=== PATIENT | male | born 1970 | race Caucasian/White ===

== ENCOUNTER 2020-10-15 14:32 | Inpatient (IN) ==
[2020-10-15] MEDS ORDERED: ALBUT/IPRATROP 3MG/0.5MG NEB 3 ML VIAL NEB STA (17:11)
--- NOTE | 2020-10-15 17:11 | Emergency Department Note ---
Impression & Plan SOB (shortness of breath), Pneumonia, Leukocytosis, COVID-19 ED Provider Note NAME: HERB LEARY JR AGE: 50 SEX: M : 1970 ARRIVES VIA: Walk-In INFORMANT: [Patient] ED PROVIDER(S): [Yinka Person MD] CHIEF COMPLAINT: Short of breath HISTORY OF PRESENT ILLNESS: The patient is a 50-year-old male who presents to the ER with complaints of 3 weeks of shortness of breath. The patient states that he has also had a somewhat productive cough. No fever. He has lost 14 pounds in a month. He just has no appetite. The patient did see [facility] today. He was referred to the ED for the possibility of a lung mass. Apparently, the patient has a history of a mass on his right lung 17 years ago. He has really not had much follow-up. The patient is not a current smoker. He has a friend's albuterol inhaler which she has been using and this does seem to help his breathing. Exertion makes his breathing worse. There has been no vomiting, he has not had diarrhea. No abdominal pain. The patient was tested for Covid just a few days ago and was negative. Of note, he is not vaccinated. REVIEW OF SYSTEMS: See HPI for pertinent positives and negatives. A total of ten systems were reviewed and were otherwise negative. PMHx/PSHx: See Below SOCIAL HISTORY: See Below. PHYSICAL EXAM: GENERAL: Patient is in moderate respiratory distress. HEENT: No acute trauma, normocephalic atraumatic, mucous membranes moist, no nasal congestion, no scleral icterus. NECK: No stridor, no adenopathy, no meningismus, trachea is midline. LUNGS: There is moderate respiratory distress. There are some wheezes heard with expiration. His lungs are diminished bilaterally. Breath sounds are equal. Increased respiratory rate. HEART: Mildly tachycardic, regular rhythm, no murmurs. ABDOMEN: Soft, nontender, bowel sounds positive, no hernias, no peritonitis. EXTREMITIES: No cyanosis or edema, full range of motion of all the joints without pain or difficulty, no signs for acute trauma. NEUROLOGIC: Oriented x 3, no acute motor or sensory deficits, no focal weakness. SKIN: No rash, no jaundice, no diaphoresis. DIFFERENTIAL DIAGNOSIS: Reactive airway disease, pneumonia, pneumothorax, malignancy, COVID-19, COPD, CHF, infection, cardiac ischemia, pulmonary embolism, bronchitis, musculoskeletal, gastrointestinal, as well as other pathologies. EMERGENCY DEPARTMENT COURSE/PROCEDURES: ECG: Indication was shortness of breath. The ECG shows what I believed to be a sinus tachycardia. The rate is 115. There is baseline artifact. There is no ST elevation, no PVCs. The QTc is 481. Continuous Cardiac Monitoring: An order was placed for continuous cardiac monitoring. The monitor shows a rate of 112 with sinus tachycardia. Critical Care Note: I have personally spent 43 minutes of critical care time in the direct management of this patient. This includes bedside care, interpretation of diagnostic studies, and testing, discussion with consultants, patient, and family members, and other required patient management activities. This 43 minutes is in excess of all separately billable procedures. MEDICAL DECISION MAKING: There is a significant leukocytosis at 19,000, this could be consistent with infection. Patient was anemic with a lower hemoglobin. Platelet count was elevated at 611. No coagulopathy. Potassium and sodium were both low. Lactic acid level was not elevated making severe sepsis less likely. No concerning liver enzyme elevation. Patient appeared to be in a euthyroid state. Covid te st returned positive. TB testing is pending. Chest film shows a right upper lung cavitary lesion. Chest CT shows similar findings as noted on the chest x- ray consistent with most likely abscess/infection. TB was considered. Malignancy was considered. The patient received a DuoNeb. He was given IV Decadron. He received oral potassium. He was given IV saline. He received IV Zosyn as antibiotic coverage. The patient does feel improved since our treatment. When the x-ray findings returned, he was immediately put in airborne precautions. The ED charge nurse was made aware of our concern for the possibility of TB. The patient is aware of his findings. He is being hospitalized. I did speak with continuous pillowcase cutter. The on-call hospitalist was consulted. Past Med/Surg History Medical History Lung mass Social History Smoking Status: Never smoker Hx Alcohol Use: Yes Alcohol type: beer and hard liquor Hx Substance Use: No Preferred Language: Telugu Communication Ability: Effective Beliefs That Will Affect Care: None Current Living Situation: Alone Feels Safe at Home: Yes Assistive Devices: None Allergies Allergies Allergy/AdvReac Type Severity Reaction Status Date / Time No Known Allergies Allergy Unverified 10/15/20 17:07 Home Meds Home Medications Medication Instructions Recorded Confirmed albuterol sulfate 0 mg INHALATION ONCE 10/15/20 10/15/20 albuterol sulfate 90 mcg/actuation 2 puff INHALATION QID 10/15/20 10/15/20 aerosol inhaler (ProAir HFA) amoxicillin 875 mg-potassium 1 tab PO Q12H 10/15/20 10/15/20 clavulanate 125 mg tablet (Augmentin) azithromycin 250 mg tablet 250 mg PO DIRECTED 10/15/20 10/15/20 (Zithromax Z-Ludwig) elderberry fruit 200 mg capsule 200 mg PO ONCE 10/15/20 10/15/20 fluticasone 250 mcg-salmeterol 50 1 inh INHALATION BID 10/15/20 10/15/20 mcg/dose blistr powdr for inhalation (Advair Diskus) prednisone 10 mg tablet 10 mg PO DIRECTED 10/15/20 10/15/20 Results & Data (ED) Vital Signs Vital Signs - 24 hr 10/15/20 14:42 10/15/20 17:34 10/15/20 17:49 Temperature 37 C 37.1 C Temperature Source Temporal Artery Scan Oral Pulse Rate 118 H 112 H Pulse Rate [Right Finger] 111 H 110 H Respiratory Rate 18 20 14 Respiratory Effort / Characteristics Non-Labored Spontaneous Blood Pressure 122/80 Blood Pressure [Right Arm] 131/81 Blood Pressure Mean 94 Blood Pressure Mean [Right Arm] 97 Pulse Oximetry 97 95 95 Oxygen Delivery Method Room Air Room Air Room Air Sepsis Recent Fever Within 48 Hours No Sepsis New/Unexplained Change in Mental Status N/A Sepsis Action Taken by Nursing No Action Required 10/15/20 19:15 10/15/20 19:30 10/15/20 19:45 Temperature Temperature Source Pulse Rate 107 H 107 H 105 H Pulse Rate [Right Finger] Respiratory Rate 21 25 H 24 Respiratory Effort / Characteristics Blood Pressure 125/79 119/69 118/86 Blood Pressure [Right Arm] Blood Pressure Mean 94 85 96 Blood Pressure Mean [Right Arm] Pulse Oximetry 94 95 95 Oxygen Delivery Method Sepsis Recent Fever Within 48 Hours Sepsis New/Unexplained Change in Mental Status Sepsis Action Taken by Nursing 10/15/20 20:30 10/15/20 20:40 Temperature Temperature Source Pulse Rate 106 H 100 H Pulse Rate [Right Finger] Respiratory Rate 17 16 Respiratory Effort / Characteristics Blood Pressure 128/93 124/84 Blood Pressure [Right Arm] Blood Pressure Mean 104 97 Blood Pressure Mean [Right Arm] Pulse Oximetry 96 95 Oxygen Delivery Method Sepsis Recent Fever Within 48 Hours Sepsis New/Unexplained Change in Mental Status Sepsis Action Taken by Prison Medications Current Medication List: was personally reviewed by me Laboratory Data Attestation: I reviewed the patient's lab results. Result diagrams: 10/15/20 21:37 10/15/20 21:37 Lab Results 10/15/20 10/15/20 10/15/20 Range/Units 17:19 17:19 17:19 WBC 19.12 H (4.8-10.8) K/uL RBC 3.77 L (4.7-6.1) M/uL Hgb 12.2 L (14.0-18.0) g/dL Hct 35.0 L (42-52) % MCV 92.8 (80-100) fL MCH 32.4 (25-34) pg MCHC 34.9 (32-36) g/dL RDW Std Deviation 47.0 H (36.4-46.3) fL RDW Coeff of Bryce 13.8 (11.5-14.5) % Plt Count 611 H (130-400) K/uL MPV 8.9 (7.4-10.4) fL Immature Gran % (Auto) 0.8 % Neut % (Auto) 88.1 % Lymph % (Auto) 5.3 % [place] % (Auto) 4.9 % Eos % (Auto) 0.7 % Baso % (Auto) 0.2 % Neut # (Auto) 16.84 H (1.4-6.5) K/uL Lymph # (Auto) 1.02 L (1.2-3.4) K/uL [place] # (Auto) 0.94 H (0.11-0.59) K/uL Eos # (Auto) 0.13 (0-0.5) K/uL Baso # (Auto) 0.03 (0-0.2) K/uL Immature Gran # (Auto) 0.16 H (0.00-0.02) K/uL PT 11.9 (9.0-12.0) Seconds INR 1.2 H (0.9-1.1) APTT 28.5 (21.0-31.0) Seconds PTT Ratio 1.1 Sodium 128 L (136-145) mmol/L Potassium 3.3 L (3.5-5.1) mmol/L Chloride 95 L (98-107) mmol/L Carbon Dioxide 25 (21-32) mmol/L Anion Gap 8.0 (3-11) BUN 12 (7-18) mg/dl Creatinine 0.72 (0.6-1.4) mg/dl Est Cr Clr Drug Dosing 125.3 ml/min Est GFR ( Amer) 125.2 ml/min Est GFR (Non-Af Amer) 108.0 ml/min BUN/Creatinine Ratio 17.1 (10-20) Glucose 101 H (70-99) mg/dl Osmolality (280-300) mOsm/kg Lactate (0.4-2.0) mmol/L Calcium 9.2 (8.5-10.1) mg/dl Magnesium 2.2 (1.8-2.4) mg/dl Total Bilirubin 0.6 (0.2-1) mg/dl AST 43 H (15-37) U/L ALT 40 (12-78) U/L Alkaline Phosphatase 92 (45-117) U/L Troponin I < 0.015 (0-0.045) ng/ml Total Protein 8.9 H (6.4-8.2) gm/dl Albumin 2.0 L (3.4-5.0) gm/dl Globulin 6.9 H (2.5-4.0) gm/dl Albumin/Globulin Ratio 0.3 L (0.9-2) TSH 1.350 (0.300-4.500) uIu/ml COVID-19 Eval Order SARS-CoV-2 (PCR) (Negative) 10/15/20 10/15/20 10/15/20 Range/Units 17:19 17:40 17:40 WBC (4.8-10.8) K/uL RBC (4.7-6.1) M/uL Hgb (14.0-18.0) g/dL Hct (42-52) % MCV (80-100) fL MCH (25-34) pg MCHC (32-36) g/dL RDW Std Deviation (36.4-46.3) fL RDW Coeff of Bryce (11.5-14.5) % Plt Count (130-400) K/uL MPV (7.4-10.4) fL Immature Gran % (Auto) % Neut % (Auto) % Lymph % (Auto) % [place] % (Auto) % Eos % (Auto) % Baso % (Auto) % Neut # (Auto) (1.4-6.5) K/uL Lymph # (Auto) (1.2-3.4) K/uL [place] # (Auto) (0.11-0.59) K/uL Eos # (Auto) (0-0.5) K/uL Baso # (Auto) (0-0.2) K/uL Immature Gran # (Auto) (0.00-0.02) K/uL PT (9.0-12.0) Seconds INR (0.9-1.1) APTT (21.0-31.0) Seconds PTT Ratio Sodium (136-145) mmol/L Potassium (3.5-5.1) mmol/L Chloride (98-107) mmol/L Carbon Dioxide (21-32) mmol/L Anion Gap (3-11) BUN (7-18) mg/dl Creatinine (0.6-1.4) mg/dl Est Cr Clr Drug Dosing ml/min Est GFR ( Amer) ml/min Est GFR (Non-Af Amer) ml/min BUN/Creatinine Ratio (10-20) Glucose (70-99) mg/dl Osmolality 274 L (280-300) mOsm/kg Lactate (0.4-2.0) mmol/L Calcium (8.5-10.1) mg/dl Magnesium (1.8-2.4) mg/dl Total Bilirubin (0.2-1) mg/dl AST (15-37) U/L ALT (12-78) U/L Alkaline Phosphatase (45-117) U/L Troponin I (0-0.045) ng/ml Total Protein (6.4-8.2) gm/dl Albumin (3.4-5.0) gm/dl Globulin (2.5-4.0) gm/dl Albumin/Globulin Ratio (0.9-2) TSH (0.300-4.500) uIu/ml COVID-19 Eval Order Covid19 at [facility] SARS-CoV-2 (PCR) POSITIVE A* (Negative) 10/15/20 Range/Units 18:18 WBC (4.8-10.8) K/uL RBC (4.7-6.1) M/uL Hgb (14.0-18.0) g/dL Hct (42-52) % MCV (80-100) fL MCH (25-34) pg MCHC (32-36) g/dL RDW Std Deviation (36.4-46.3) fL RDW Coeff of Rbyce (11.5-14.5) % Plt Count (130-400) K/uL MPV (7.4-10.4) fL Immature Gran % (Auto) % Neut % (Auto) % Lymph % (Auto) % [place] % (Auto) % Eos % (Auto) % Baso % (Auto) % Neut # (Auto) (1.4-6.5) K/uL Lymph # (Auto) (1.2-3.4) K/uL [place] # (Auto) (0.11-0.59) K/uL Eos # (Auto) (0-0.5) K/uL Baso # (Auto) (0-0.2) K/uL Immature Gran # (Auto) (0.00-0.02) K/uL PT (9.0-12.0) Seconds INR (0.9-1.1) APTT (21.0-31.0) Seconds PTT Ratio Sodium (136-145) mmol/L Potassium (3.5-5.1) mmol/L Chloride (98-107) mmol/L Carbon Dioxide (21-32) mmol/L Anion Gap (3-11) BUN (7-18) mg/dl Creatinine (0.6-1.4) mg/dl Est Cr Clr Drug Dosing ml/min Est GFR ( Amer) ml/min Est GFR (Non-Af Amer) ml/min BUN/Creatinine Ratio (10-20) Glucose (70-99) mg/dl Osmolality (280-300) mOsm/kg Lactate 1.4 (0.4-2.0) mmol/L Calcium (8.5-10.1) mg/dl Magnesium (1.8-2.4) mg/dl Total Bilirubin (0.2-1) mg/dl AST (15-37) U/L ALT (12-78) U/L Alkaline Phosphatase (45-117) U/L Troponin I (0-0.045) ng/ml Total Protein (6.4-8.2) gm/dl Albumin (3.4-5.0) gm/dl Globulin (2.5-4.0) gm/dl Albumin/Globulin Ratio (0.9-2) TSH (0.300-4.500) uIu/ml COVID-19 Eval Order SARS-CoV-2 (PCR) (Negative) Administered Medications Folic Acid (Folic Acid 1 Mg Tab) 1 mg PO [facility] Stop: 11/14/20 22:58 Last Admin: 10/16/20 00:32 Dose: 1 mg Documented by: [id number] Thiamine HCl (Thiamine Hcl 100 Mg Tab) 100 mg PO [facility] Stop: 11/14/20 22:58 Last Admin: 10/16/20 00:32 Dose: 100 mg Documented by: [id number] Discontinued Medications Albuterol (Albut/Ipratrop 3mg/0.5mg Neb 3 Ml Vial) 3 ml NEB NOW STA Stop: 10/15/20 17:12 Last Admin: 10/15/20 17:49 Dose: 3 ml Documented by: [id number] Dexamethasone Sodium Phosphate (DexamethasonePf 10 Mg/Ml Vial) 6 mg IV NOW ONE Stop: 10/15/20 19:44 Last Admin: 10/15/20 20:39 Dose: 6 mg Documented by: [id number] Gabapentin (Gabapentin 800 Mg Tab) 1,200 mg PO NOW STA Stop: 10/15/20 20:59 Last Admin: 10/15/20 21:41 Dose: Not Given Documented by: [id number] Gabapentin (Gabapentin 600 Mg Tab) 1,200 mg PO NOW STA Stop: 10/15/20 21:02 Last Admin: 10/15/20 21:39 Dose: 1,200 mg Documented by: [id number] Piperacillin Sod/Tazobactam Sod (Zosyn) 4.5 gm in 120 mls @ 240 mls/hr IV NOW ONE Stop: 10/15/20 18:20 Last Infusion: 10/15/20 19:25 Dose: 0 mls/hr Documented by: [id number] Admin: 10/15/20 18:55 Dose: 240 mls/hr Documented by: [id number] Sodium Chloride (Nss 1000ml) 1,000 mls @ 999 mls/hr IV .Q1H1M ONE Stop: 10/15/20 20:03 Last Infusion: 10/15/20 21:41 Dose: 0 mls/hr Documented by: [id number] Admin: 10/15/20 20:40 Dose: 999 mls/hr Documented by: [id number] Thiamine HCl 100 mg/ Syringe 10 mls @ 2 mls/min IV NOW STA Stop: 10/15/20 21:11 Last Admin: 10/15/20 21:40 Dose: 2 mls/min Documented by: [id number] Pantoprazole Sodium 40 mg/ (Syringe) 10 mls @ 5 mls/min IV NOW STA Stop: 10/15/20 21:07 Last Admin: 10/15/20 21:40 Dose: 5 mls/min Documented by: [id number] Doxycycline Hyclate 100 mg/ (Dextrose) 110 mls @ 50 mls/hr IV NOW STA Stop: 10/16/20 00:03 Last Admin: 10/16/20 00:31 Dose: 50 mls/hr Documented by: [id number] Ioversol (Optiray 320 125ml) 120 ml IV ONCE ONE Stop: 10/15/20 20:07 Last Admin: 10/15/20 20:07 Dose: 120 ml Documented by: [id number] Potassium Chloride (Potassium Chloride Crtab 20 Meq Tabcr) 40 meq PO NOW STA Stop: 10/15/20 19:16 Last Admin: 10/15/20 20:39 Dose: 40 meq Documented by: [id number] Imaging Data Radiologist's Impression: Chest CTA 10/15/20 17:05 CT ANGIOGRAPHY OF THE CHEST, PULMONARY EMBOLUS PROTOCOL CLINICAL HISTORY: Cough. COMPARISON STUDY: Chest radiograph October 15, 2020. TECHNIQUE: Following IV administration of 120 mL of Optiray, helical axial images of the chest were obtained utilizing the pulmonary embolus protocol. Maximal intensity projections and sagittal and coronal reformats were viewed on an independent 3D workstation. IV contrast was administered without complication. Automated exposure control was utilized for the study. A dose lowering technique was utilized adhering to the principles of ALARA. CT DOSE: 327.76 mGy.cm FINDINGS: No pulmonary emboli are identified although the lower lobe pulmonary arteries are suboptimally opacified. There is a hiatal hernia. Size of the heart is normal. There is no thoracic aortic dissection. A prominent right paratracheal left node measures 1.3 x 0.9 cm. An enlarged right hilar node measures 1.8 x 1.5 cm. Note is made of a 10.4 x 6.4 x 8 cm thick-walled cavitary lesion within the right upper lobe. This contains an air-fluid level. There is extensive adjacent airspace opacity. In addition, there are numerous ill-defined small nodules throughout the lungs. The cavity abuts the chest wall. No associated bony destruction is present. There is no pneumothorax or pleural effusion. There is a 3.4 cm cystic focus with airspace opacity within the left lower lobe. No suspicious lesions are identified within visualized portions of the bony thorax. Visual portions of the upper abdomen are unremarkable. IMPRESSION: 1. No pulmonary emboli identified although lower lobe pulmonary arteries suboptimally opacified. 2. 10.4 x 6.4 x 8 cm thick-walled cavitary lesion within the right upper lobe which contains an air-fluid level. Adjacent airspace opacity. The CT appearance is nonspecific however an infectious process is favored and tuberculosis with possible endobronchial spread throughout the lungs is within the differential. In addition, a neoplastic process is also within the differential and therefore short-term imaging follow-up is recommended to ensure resolution. Findings discussed with Dr. Person at time of dictation. 3. Mildly enlarged right hilar lymph nodes and prominent mediastinal lymph nodes. These may be reactive. A neoplastic process could appear similar and therefore these should be assessed on subsequent CT to ensure resolution. 4. Small irregular airspace opacities throughout the lungs which favor an infectious process. 5. 3.4 cm cystic focus with airspace opacity within the left lower lobe. This should be assessed on follow-up CT as well. ACT 112: Positive. There are findings on this exam that require communication between the performing entity and the patient following Patient Test Result Information Act ([place] Act 112) guidelines. Electronically signed by: Casey Helms M.D. 10/15/2020 8:51 PM Chest X-Ray 10/15/20 17:06 XR chest 1V portable CLINICAL HISTORY: Shortness of breath. COMPARISON STUDY: No previous studies for comparison. FINDINGS: There is no pneumothorax or pleural effusion. Note is made of an 8.3 cm cavitary lesion within the right upper lobe. There is adjacent airspace opacity. Cardiac size is normal. There is no evidence for pulmonary edema. IMPRESSION: 8.3 cm cavitary lesion within the right upper lobe with adjacent airspace opacity. This could reflect a cavitary pneumonia or a cavitary neop lasm. This can be further assessed with chest CT which has been ordered. ACT 112: Negative or not required by law. Electronically signed by: Casey Helms M.D. 10/15/2020 5:45 PM Discharge Plan Visit Data Chief Complaint: Cough Stated Complaint: COUGH/DOCTOR REF FOR CT ED Provider: Yinka Person Discharge Problem: SOB (shortness of breath), Pneumonia, Leukocytosis, COVID-19 Patient Disposition: Admitted As Inpatient Condition: Fair Discharge Instructions Interventions: ED Discharge Assessment Last Done: 10/15/20 22:13
[2020-10-15 17:28] LABS: Basophils # (auto) 0.03 K/uL (0-0.2); Basophils % (auto) 0.2 %; Eosinophils # (auto) 0.13 K/uL (0-0.5); Eosinophils % (auto) 0.7 %; Hemoglobin 12.2 g/dL (14.0-18.0); Immature Granulocytes # (auto) 0.16 K/uL (0.00-0.02); Immature Granulocytes % (auto) 0.8 %; Lymphocytes # (auto) 1.02 K/uL (1.2-3.4); Lymphocytes % (auto) 5.3 %; Mean Corpuscular Hemoglobin 32.4 pg (25-34); Mean Corpuscular Hgb Conc 34.9 g/dL (32-36); Mean Corpuscular Volume 92.8 fL (80-100); Mean Platelet Volume 8.9 fL (7.4-10.4); Monocytes # (auto) 0.94 K/uL (0.11-0.59); Monocytes % (auto) 4.9 %; Neutrophils # (auto) 16.84 K/uL (1.4-6.5); Neutrophils % (auto) 88.1 %; Platelet Count 611 K/uL (130-400); RDW Coefficient of Variation 13.8 % (11.5-14.5); Red Blood Count 3.77 M/uL (4.7-6.1); White Blood Count 19.12 K/uL (4.8-10.8)
[2020-10-15 17:40] LABS: INR 1.2 (0.9-1.1); Partial Thromboplastin Ratio 1.1; Partial Thromboplastin Time 28.5 Seconds (21.0-31.0); Prothrombin Time 11.9 Seconds (9.0-12.0)
--- NOTE | 2020-10-15 17:46 | XRay Report ---
XR chest 1V portable CLINICAL HISTORY: Shortness of breath. COMPARISON STUDY: No previous studies for comparison. FINDINGS: There is no pneumothorax or pleural effusion. Note is made of an 8.3 cm cavitary lesion wit hin the right upper lobe. There is adjacent airspace opacity. Cardiac size is normal. There is no magali dence for pulmonary edema. IMPRESSION: 8.3 cm cavitary lesion within the right upper lobe with adjacent airspace opacity. This could reflect a cavitary pneumonia or a cavitary neoplasm. This can be further assessed with chest CT which has been ordered. ACT 112: Negative or not required by law. Electronically signed by: Casey Helms M.D. 10/15/2020 5:45 PM
[2020-10-15] MEDS ORDERED: PIPERACILLIN/TAZOBACTAM 4.5 GM/120 ML BAG IV ONE (17:51)
[2020-10-15] MEDS ORDERED: PIPERACILL/TAZOBAC CONSULT ACTIVE PRN (17:51)
[2020-10-15 17:59] LABS: Alanine Aminotransferase 40 U/L (12-78); Aspartate Aminotransferase 43 U/L (15-37); BUN Creatinine Ratio 17.1 (10-20); Blood Urea Nitrogen 12 mg/dl (7-18); Calcium 9.2 mg/dl (8.5-10.1); Carbon Dioxide 25 mmol/L (21-32); Chloride 95 mmol/L (98-107); Creatinine Clr Calc Pharmacy 125.3 ml/min; Est GFR (African American) 125.2 ml/min; Glucose 101 mg/dl (70-99); Magnesium 2.2 mg/dl (1.8-2.4); Potassium 3.3 mmol/L (3.5-5.1); Sodium 128 mmol/L (136-145)
[2020-10-15 18:04] LABS: Albumin Globulin Ratio 0.3 (0.9-2); Alkaline Phosphatase 92 U/L (45-117); Bilirubin,Total 0.6 mg/dl (0.2-1); Globulin 6.9 gm/dl (2.5-4.0); Total Protein 8.9 gm/dl (6.4-8.2); Troponin I < 0.015 ng/ml (0-0.045)
[2020-10-15] MEDS ORDERED: SODIUM CHLORIDE 0.9% 1000ML 1,000 ML IV ONE (19:03)
[2020-10-15] MEDS ORDERED: POTASSIUM CHLORIDE CRTAB 20 MEQ TABCR PO STA (19:15)
[2020-10-15] MEDS ORDERED: dexAMETHasone**PF** 10 MG/ML VIAL IV ONE (19:43)
[2020-10-15] MEDS ORDERED: OPTIRAY 320 125ml IV ONE (20:06)
--- NOTE | 2020-10-15 20:47 | History & Physical Report ---
Date of Service October 15, 2020 Assessment & Plan (1) Sepsis: Plan: Secondary to COVID-19 pneumonia rule out aspiration Progressive right upper lobe mass on CT (infection versus malignancy) COPD, mild exacerbation without hypoxemia/respiratory distress HTN, stable, currently not on medications New onset anemia secondary to slow UGI B hx GERD Differentials include gastritis, PUD, tumor, varices Hyponatremia Multifactorial: poor p.o. intake, alcohol intake Alcohol abuse past tobacco abuse Med telemetry CS, Augmentin, Doxycycline MDI RTC Hold off on additional steroid Rx for now TB work-up as ordered by ER provider Swallow eval, aspiration precautions Pulmonary consult Re: Lung mass on CT PPI GI consult RE possible UGI B Anemia work-up, transfuse PRBC if hemoglobin less than 7 and or for symptomatic anemia Careful correction of sodium Hyponatremia work-up JEFFERY S, DT precautions DVT prophylaxis. SCDs Re: Possible GI bleed Full code Text document was generated using [employer] voice recognition software. It may contain grammatical or spelling errors. Kindly contact undersigned for clarification of any documentation item in question. History of Present Illness Chief Complaint: Abnormal chest x-ray Primary Care Provider: Dr. Flores History obtained from patient and records. Medical history significant for COPD, chronic right upper lobe mass/infiltrate, HTN, GERD, past tobacco abuse, alcohol abuse Patient noted to have a right upper lobe mass versus infiltrate on CT (since 2002 with history of hemoptysis. Work-up negative for tuberculosis as per documentation. Cytology did not show any malignancy. Patient unable to comply with periodic CXRs/ CAT scans/follow-up visit r ecommended by local pelt dropper. Patient seen at PCP's office last month for elevated BP and swallowing problems for about 15 years. Patient has to eat slowly for food to go down, severe GERD especially when patient lays down as per records. OTC PPI intake which seem to help. Stools intermittently dark without abdominal pain as per patient. Daily PPI intake recommended by PCP. Patient advised to cut down on alcohol as per documentation. 3 weeks history of junky cough symptoms with wheezing, poor appetite, worsening shortness of breath without chest pain. No COVID-19 vaccination. No known recent COVID-19 contacts. Some weight loss as per patient. Patient denies fever, chills. Patient seen at PCP's office today. Prednisone, azithromycin and Augmentin prescribed for possible COPD exace rbation. Outpatient chest x-ray showed 1. Large cavitary lesion in the right upper lobe with air fluid level and surrounding opacity. This is suspicious for malignancy or possible infectious etiology. CT of chest recommended with IV contrast. Patient directed to ER for evaluation by PCP. IV Zosyn given at the ER for sepsis. Decadron given for Covid 19 pneumonia. Medical History as above Surgical History : Jeff hole in for spinal meningitis Family History : Prostate cancer, heart disease, epilepsy, throat cancer Personal/Social history : Past tobacco abuse, alcohol abuse, currently unemployed/prior work as a [employer] Allergies Allergy/AdvReac Type Severity Reaction Status Date / Time No Known Allergies Allergy Unverified 10/15/20 17:07 Home Medications Medication Instructions Recorded Confirmed Type albuterol sulfate 0 mg INHALATION ONCE 10/15/20 10/15/20 History albuterol sulfate 90 mcg/actuation 2 puff INHALATION QID 10/15/20 10/15/20 History aerosol inhaler (ProAir HFA) amoxicillin 875 mg-potassium 1 tab PO Q12H 10/15/20 10/15/20 History clavulanate 125 mg tablet (Augmentin) azithromycin 250 mg tablet 250 mg PO DIRECTED 10/15/20 10/15/20 History (Zithromax Z-Ludwig) elderberry fruit 200 mg capsule 200 mg PO ONCE 10/15/20 10/15/20 History fluticasone 250 mcg-salmeterol 50 1 inh INHALATION BID 10/15/20 10/15/20 History mcg/dose blistr powdr for inhalation (Advair Diskus) prednisone 10 mg tablet 10 mg PO DIRECTED 10/15/20 10/15/20 History Past Med/Surg History Medical History Lung mass Social History Smoking Status: Never smoker Hx Alcohol Use: Yes Alcohol type: beer and hard liquor Hx Substance Use: No Preferred Language: Estonian Communication Ability: Effective Beliefs That Will Affect Care: None Current Living Situation: Alone Feels Safe at Home: Yes Assistive Devices: None Review of Systems Review of Systems: As per HPI, all 10 systems reviewed, all other ROS negative Physical Exam Physical Exam: GENERAL: Comfortable, no respiratory distress SKIN: Pallor, warm HEENT: Pale palpebral conjunctivae, no ptosis, dry buccal mucosa NECK : Supple, no tenderness CHEST : Decreased breath sounds, occasional expiratory wheezes, no tenderness HEART : Tachycardic, no obvious murmurs ABDOMEN: Some distention, nontender RECTAL : Refused EXTREMITIES : No LE swelling/tenderness, no other conspicuous deformities noted NEUROLOGIC : Coherent, no facial asymmetry, no other gross focality Results & Data Results & Data ([facility]) Vital Signs (Past 12 Hours) Vital Signs Temp Pulse Pulse Resp BP BP Pulse Ox 10/15/20 17:49 110 H 14 95 10/15/20 17:34 37.1 C 112 H 111 H 20 131/81 95 10/15/20 14:42 37 C 118 H 18 122/80 97 Laboratory Results Laboratory Results WBC 19.12 K/uL (4.8-10.8) H 10/15/20 17:19 RBC 3.77 M/uL (4.7-6.1) L 10/15/20 17:19 Hgb 12.2 g/dL (14.0-18.0) L 10/15/20 17:19 Hct 35.0 % (42-52) L 10/15/20 17:19 MCV 92.8 fL (80-100) 10/15/20 17:19 MCH 32.4 pg (25-34) 10/15/20 17:19 MCHC 34.9 g/dL (32-36) 10/15/20 17:19 RDW Std Deviation 47.0 fL (36.4-46.3) H 10/15/20 17:19 RDW Coeff of Bryce 13.8 % (11.5-14.5) 10/15/20 17:19 Plt Count 611 K/uL (130-400) H 10/15/20 17:19 MPV 8.9 fL (7.4-10.4) 10/15/20 17:19 Immature Gran % (Auto) 0.8 % 10/15/20 17:19 Neut % (Auto) 88.1 % 10/15/20 17:19 Lymph % (Auto) 5.3 % 10/15/20 17:19 [place] % (Auto) 4.9 % 10/15/20 17:19 Eos % (Auto) 0.7 % 10/15/20 17:19 Baso % (Auto) 0.2 % 10/15/20 17:19 Neut # (Auto) 16.84 K/uL (1.4-6.5) H 10/15/20 17:19 Lymph # (Auto) 1.02 K/uL (1.2-3.4) L 10/15/20 17:19 [place] # (Auto) 0.94 K/uL (0.11-0.59) H 10/15/20 17:19 Eos # (Auto) 0.13 K/uL (0-0.5) 10/15/20 17:19 Baso # (Auto) 0.03 K/uL (0-0.2) 10/15/20 17:19 Immature Gran # (Auto) 0.16 K/uL (0.00-0.02) H 10/15/20 17:19 PT 11.9 Seconds (9.0-12.0) 10/15/20 17:19 INR 1.2 (0.9-1.1) H 10/15/20 17:19 APTT 28.5 Seconds (21.0-31.0) 10/15/20 17:19 PTT Ratio 1.1 10/15/20 17:19 Sodium 128 mmol/L (136-145) L 10/15/20 17:19 Potassium 3.3 mmol/L (3.5-5.1) L 10/15/20 17:19 Chloride 95 mmol/L (98-107) L 10/15/20 17:19 Carbon Dioxide 25 mmol/L (21-32) 10/15/20 17:19 Anion Gap 8.0 (3-11) 10/15/20 17:19 BUN 12 mg/dl (7-18) 10/15/20 17:19 Creatinine 0.72 mg/dl (0.6-1.4) 10/15/20 17:19 Est Cr Clr Drug Dosing 125.3 ml/min 10/15/20 17:19 Est GFR ( Amer) 125.2 ml/min 10/15/20 17:19 Est GFR (Non-Af Amer) 108.0 ml/min 10/15/20 17:19 BUN/Creatinine Ratio 17.1 (10-20) 10/15/20 17:19 Glucose 101 mg/dl (70-99) H 10/15/20 17:19 Lactate 1.4 mmol/L (0.4-2.0) 10/15/20 18:18 Calcium 9.2 mg/dl (8.5-10.1) 10/15/20 17:19 Magnesium 2.2 mg/dl (1.8-2.4) 10/15/20 17:19 Total Bilirubin 0.6 mg/dl (0.2-1) 10/15/20 17:19 AST 43 U/L (15-37) H 10/15/20 17:19 ALT 40 U/L (12-78) 10/15/20 17:19 Alkaline Phosphatase 92 U/L (45-117) 10/15/20 17:19 Troponin I < 0.015 ng/ml (0-0.045) 10/15/20 17:19 Total Protein 8.9 gm/dl (6.4-8.2) H 10/15/20 17:19 Albumin 2.0 gm/dl (3.4-5.0) L 10/15/20 17:19 Globulin 6.9 gm/dl (2.5-4.0) H 10/15/20 17:19 Albumin/Globulin Ratio 0.3 (0.9-2) L 10/15/20 17:19 TSH 1.350 uIu/ml (0.300-4.500) 10/15/20 17:19 COVID-19 Eval Order Covid19 at [facility] 10/15/20 17:40 SARS-CoV-2 (PCR) POSITIVE (Negative) A* 10/15/20 17:40 Impressions Chest X-Ray 10/15/20 17:06 XR chest 1V portable CLINICAL HISTORY: Shortness of breath. COMPARISON STUDY: No previous studies for comparison. FINDINGS: There is no pneumothorax or pleural effusion. Note is made of an 8.3 cm cavitary lesion within the right upper lobe. There is adjacent airspace opacity. Cardiac size is normal. There is no evidence for pulmonary edema. IMPRESSION: 8.3 cm cavitary lesion within the right upper lobe with adjacent airspace opacity. This could reflect a cavitary pneumonia or a cavitary neoplasm. This can be further assessed with chest CT which has been ordered. ACT 112: Negative or not required by law. Electronically signed by: Casey Helms M.D. 10/15/2020 5:[address] chest: 1. No pulmonary emboli identified although lower lobe pulmonary arteries suboptimally opacified. 2. 10.4 x 6.4 x 8 cm thick-walled cavitary lesion within the right upper lobe which contains an air-fluid level. Adjacent airspace opacity. The CT appearance is nonspecific however an infectious process is favored and tuberculosis with possible endobronchial spread throughout the lungs is within the differential. In addition, a neoplastic process is also within the differential and therefore short-term imaging follow-up is recommended to ensure resolution. Findings discussed with Dr. Person at time of dictation. 3. Mildly enlarged right hilar lymph nodes and prominent mediastinal lymph nodes. These may be reactive. A neoplastic process could appear similar and therefore these should be assessed on subsequent CT to ensure resolution. 4. Small irregular airspace opacities throughout the lungs which favor an infectious process. 5. 3.4 cm cystic focus with airspace opacity within the left lower lobe. This should be assessed on follow-up CT as well. EKG as per my interpretation rate 115, sinus tachycardia, normal axis, no ischemia
--- NOTE | 2020-10-15 20:52 | CT Scan Report ---
CT ANGIOGRAPHY OF THE CHEST, PULMONARY EMBOLUS PROTOCOL CLINICAL HISTORY: Cough. COMPARISON STUDY: Chest radiograph October 15, 2020. TECHNIQUE: Following IV administration of 120 mL of Optiray, helical axial images of the chest were o btained utilizing the pulmonary embolus protocol. Maximal intensity projections and sagittal and cor onal reformats were viewed on an independent 3D workstation. IV contrast was administered without co mplication. Automated exposure control was utilized for the study. A dose lowering technique was ut ilized adhering to the principles of ALARA. CT DOSE: 327.76 mGy.cm FINDINGS: No pulmonary emboli are identified although the lower lobe pulmonary arteries are suboptim ally opacified. There is a hiatal hernia. Size of the heart is normal. There is no thoracic aortic di ssection. A prominent right paratracheal left node measures 1.3 x 0.9 cm. An enlarged right hilar nod e measures 1.8 x 1.5 cm. Note is made of a 10.4 x 6.4 x 8 cm thick-walled cavitary lesion within the right upper lobe. This contains an air-fluid level. There is extensive adjacent airspace opacity. In addition, there are numerous ill-defined small nodules throughout the lungs. The cavity abuts the [address] st wall. No associated bony destruction is present. There is no pneumothorax or pleural effusion. The re is a 3.4 cm cystic focus with airspace opacity within the left lower lobe. No suspicious lesions a re identified within visualized portions of the bony thorax. Visual portions of the upper abdomen are unremarkable. IMPRESSION: 1. No pulmonary emboli identified although lower lobe pulmonary arteries suboptimally opacified. 2. 10.4 x 6.4 x 8 cm thick-walled cavitary lesion within the right upper lobe which contains an air-f luid level. Adjacent airspace opacity. The CT appearance is nonspecific however an infectious process is favored and tuberculosis with possible endobronchial spread throughout the lungs is within the di fferential. In addition, a neoplastic process is also within the differential and therefore short-ter m imaging follow-up is recommended to ensure resolution. Findings discussed with Dr. Person at time of dictation. 3. Mildly enlarged right hilar lymph nodes and prominent mediastinal lymph nodes. These may be reacti ve. A neoplastic process could appear similar and therefore these should be assessed on subsequent CT to ensure resolution. 4. Small irregular airspace opacities throughout the lungs which favor an infectious process. 5. 3.4 cm cystic focus with airspace opacity within the left lower lobe. This should be assessed on f ollow-up CT as well. ACT 112: Positive. There are findings on this exam that require communication between the performing entity and the patient following Patient Test Result Information Act ([place] Act 112) guidelines. Electronically signed by: Casey Helms M.D. 10/15/2020 8:51 PM
[2020-10-15] MEDS ORDERED: GABAPENTIN 800 MG TAB PO STA (20:58)
[2020-10-15] MEDS ORDERED: GABAPENTIN 600 MG TAB PO STA (21:01)
[2020-10-15] MEDS ORDERED: PANTOprazole 40 MG in SYRINGE 0 ML IV STA (21:06)
[2020-10-15] MEDS ORDERED: THIAMINE HCL 100 MG in SYRINGE 9 ML IV STA (21:07)
[2020-10-15] MEDS ORDERED: GABAPENTIN 1200MG ALCOHOL WITHDRAWAL LOAD PO STA (21:51)
[2020-10-15 21:59] LABS: Hematocrit (blood only) 32.5 % (42-52); Hemoglobin 11.1 g/dL (14.0-18.0); Reticulocyte % 1.2 % (0.5-2.0); Reticulocytes # 0.04 10^6/uL (0.02-0.10)
[2020-10-15 22:22] LABS: Ferritin 1590.7 ng/ml (8-388)
[2020-10-15 22:53] LABS: Folate (Folic Acid) 9.1 ng/ml (>5.38)
[2020-10-15] MEDS ORDERED: LORazepam 2 MG/4 ML VIAL IV PRN (22:59)
[2020-10-15] MEDS ORDERED: LEVALBUTEROL TARTRATE 15 GM HFA.AER.AD INH PRN (22:59)
[2020-10-15] MEDS ORDERED: ATIVAN IV ALCOHOL WITHDRAWL IV PRN (22:59)
[2020-10-15] MEDS ORDERED: LORazepam 1 MG/2 ML VIAL IV PRN (22:59)
[2020-10-15] MEDS ORDERED: LORazepam 3 MG/6 ML VIAL IV PRN (22:59)
[2020-10-15] MEDS: DOXYCYCLINE HYCLATE 100 MG in DEXTROSE 5% 100 ML IV STA (23:00)
[2020-10-16] MEDS: DOXYCYCLINE HYCLATE 100 MG in DEXTROSE 5% 100 ML IV STA (00:31)
[2020-10-16] MEDS: THIAMINE HCL 100 MG TAB PO SCH ×2 (00:32→09:00)
[2020-10-16] MEDS: FOLIC ACID 1 MG TAB PO SCH ×2 (00:32→09:01)
[2020-10-16] MEDS: GABAPENTIN 600 MG TAB PO SCH ×3 (03:17→17:29)
[2020-10-16] MEDS ORDERED: XOPENEX/ATROVENT 1.25mg/0.5MG NEB COMBO NEB SCH (07:00)
[2020-10-16 07:17] LABS: Hematocrit (blood only) 34.9 % (42-52); Hemoglobin 11.8 g/dL (14.0-18.0); Mean Corpuscular Hemoglobin 31.8 pg (25-34); Mean Corpuscular Hgb Conc 33.8 g/dL (32-36); Mean Corpuscular Volume 94.1 fL (80-100); Mean Platelet Volume 9.2 fL (7.4-10.4); Platelet Count 577 K/uL (130-400); RDW Coefficient of Variation 13.9 % (11.5-14.5); RDW Standard Deviation 47.7 fL (36.4-46.3); Red Blood Count 3.71 M/uL (4.7-6.1)
[2020-10-16] MEDS ORDERED: PIPERACILL/TAZOBAC CONSULT ACTIVE PRN (07:26)
[2020-10-16] MEDS: LEVALBUTEROL 1.25MG/0.5ML NEB INH SCH ×3 (07:27→20:19)
[2020-10-16] MEDS: IPRATROPIUM BROMIDE NEB SOLN 0.02% 2.5 ML VIAL INH SCH ×3 (07:27→20:19)
--- NOTE | 2020-10-16 07:32 | Pulmonary Consultation ---
Date of Consultation October 16, 2020 Assessment & Plan (1) Cavitary lung disease: (2) COPD (chronic obstructive pulmonary disease): (3) COVID-19: (4) Pneumonia: Laterality: right Lung location: upper lobe of lung Pneumonia type: due to unspecified organism Qualified Code(s): J18.9 - Pneumonia, unspecified organism CT chest 10/15/2020 personally reviewed: Right upper lobe 11 x 7 cm thick cavitary lesion with surrounding groundglass infiltrate Tree-in-bud opacities appreciated in the left upper left lower as well as the right middle lobe Reactive mediastinal lymphadenopathy especially 10R, 4R ''Patient was in the hospital back in 2002. He had a CT chest done at that time. Images are not in our system. He had a right upper lobe mass at that time for which he had a bronchoscopy done with BAL and transbronchial biopsy BAL as well as transbronchial biopsies were negative for malignancy'' --Right upper lobe cavitary lesion Thick cavitory wall Differential includes infectious which includes TB, patient likely has mycetoma within it as well Malignancy can also present the same way differential including squamous cell Continue with broad-spectrum antibiotics covering anaerobes as well as Pseu domonas Continue with atypical coverage Follow urine Legionella as well as mycoplasma IgM Follow-up Gold [employer] culture and smear x3 --COVID-19 pneumonia Infiltrates on the CAT scan but not correlate with COVID-19 No need to treat COVID-19 as the patient is not hypoxic If the patient does get hypoxic then treatment with remdesivir could be thought of --COPD with emphysema On Advair at home Would recommend the patient to be on Anoro. Plan: Follow-up Gold QuantiFERON. If clinical difference negative the possibility of patient having active TB is very low Patient had lesion in the right upper lobe for a while this could be just progression of the Possibility of cancer is still high Given the recent positive COVID-19. Plan would be to have bronchoscopy done as an outpatient after 21 days. Patient was told in and that detail that is very high possibility could be cancer and he needs to follow-up. Given the patient is at TB rule out I do not think he should be co-inhibited with another patient. This was relayed to the nurse as well as charge nurse. Case was discussed with Dr. Goodwin Please note the above document was generated using voice recognition software. It may contain grammatical, syntax or spelling errors.Any formal questions or concerns about the content, text or information contained within the body of this dictation should be directly addressed to the provider for clarification. History of Present Illness Attending Physician: Ovidio Goodwin MD History of Present Illness 50-year-old male past medical history of COPD, hypertension, GERD, daily alcohol use presented to the hospital with complaints of shortness of breath and cough going on since last couple of weeks progressively getting worse. Patient had CT chest done in the ED which showed right upper lobe cavitary lesion Pulmonary consulted for same Patient was also found to be positive for COVID-19 The time of examination patient states that he has been having issues with shortness of breath and right-sided chest pain which has been going on since 3 weeks. Patient denies any more chest pain on the right side. He has been coughing and bringing up brownish phlegm. Denies any hemoptysis. Never had similar episode in the past He does state that he had a mass on the right side of the lung back in 2002 when he had bronchoscopy done. Denies any recent travel history. He stays in the [facility]. Positive night sweats. Since coming to the hospital he states that he is feeling better. The cough is decreasing amount. He is not bringing up anything right now He also complains of weight loss approximately 15 pounds with poor appetite. He has not been vaccinated Patient was in the hospital back in 2002. He had a right upper lobe mass at that time for which he had a bronchoscopy done with BAL and transbronchial biopsy BAL as well as transbronchial biopsies were negative for malignancy Social history: Greater than [id number] smoking history, quit in 2002, does marijuana, last use was 8 months ago, denies any other illicit drug use, drinks 4-6 beers on a daily basis. Has not drank since last 3 months Lung cancer: Brother had lung cancer was a smoker Allergies Allergy/AdvReac Type Severity Reaction Status Date / Time No Known Allergies Allergy Unverified 10/15/20 17:07 Home Medications Medication Instructions Recorded Confirmed Type albuterol sulfate 0 mg INHALATION ONCE 10/15/20 10/15/20 History albuterol sulfate 90 mcg/actuation 2 puff INHALATION QID 10/15/20 10/15/20 History aerosol inhaler (ProAir HFA) amoxicillin 875 mg-potassium 1 tab PO Q12H 10/15/20 10/15/20 History clavulanate 125 mg tablet (Augmentin) azithromycin 250 mg tablet 250 mg PO DIRECTED 10/15/20 10/15/20 History (Zithromax Z-Ludwig) elderberry fruit 200 mg capsule 200 mg PO ONCE 10/15/20 10/15/20 History fluticasone 250 mcg-salmeterol 50 1 inh INHALATION BID 10/15/20 10/15/20 History mcg/dose blistr powdr for inhalation (Advair Diskus) prednisone 10 mg tablet 10 mg PO DIRECTED 10/15/20 10/15/20 History Patient History Medical History Lung mass Social History Smoking Status: Never smoker Hx Alcohol Use: Yes Alcohol type: beer and hard liquor Hx Substance Use: No Preferred Language: Vietnamese Communication Ability: Effective Beliefs That Will Affect Care: None Current Living Situation: Alone Feels Safe at Home: Yes Assistive Devices: None Review of Systems Review of Systems: All systems reviewed & are unremarkable except as noted in HPI & below Physical Exam Physical Exam: Constitutional: No acute distress HEENT: EOMI, PERRLA, no cervical or supraclavicular lymphadenopathy Respiratory system: Decreased bilaterally, no wheeze, rhonchi, positive crackles bilateral lower lobes CVS: S1-S2 positive, no murmurs or gallops Abdomen: Soft, nontender, nondistended, positive bowel sounds x4 Extremities: +2 pulses bilaterally radialis/ dorsalis pedis, no cyanosis, no edema Neuro: Awake alert oriented x3 Psych: Normal mood and affect G/U: No Edwards Skin: no rashes, warm and dry Lymphatic: no cervical or axillary lymphadenopathy Results & Data Results & Data ([facility]) Vital Signs (Past 12 Hours) Vital Signs Temp Pulse Pulse Resp BP BP Pulse Ox 10/16/20 03:45 90 10/16/20 03:18 36.6 C 80 16 110/70 99 10/15/20 23:08 36.8 C 90 18 112/78 96 10/15/20 21:45 94 H 22 121/80 97 10/15/20 21:30 97 H 16 122/84 96 10/15/20 20:40 100 H 16 124/84 95 10/15/20 20:30 106 H 17 128/93 96 10/15/20 19:45 105 H 24 118/86 95 10/15/20 19:30 107 H 25 H 119/69 95 10/16/20 06:43 10/16/20 06:43 PG Care Time/CCT Total # of Minutes Spent Total Time Spent with Patient: Total time spent is greater than 50% in coordination of care (as documented) at patient's floor/unit and/or counseling patient: [place] [address] Inpt Consult Level 4 Patient Type New Diagnoses Cavitary lung disease J98.4 COPD (chronic obstructive pulmonary disease) J44.9 COVID-19 U07.1 Pneumonia J18.9 Laterality: right Lung location: upper lobe of lung Pneumonia type: due to unspecified organism Time Spent (min) 95
[2020-10-16 07:39] LABS: Basophils # (auto) 0.02 K/uL (0-0.2); Basophils % (auto) 0.1 %; Immature Granulocytes # (auto) 0.19 K/uL (0.00-0.02); Immature Granulocytes % (auto) 1.2 %; Lymphocytes # (auto) 0.48 K/uL (1.2-3.4); Lymphocytes % (auto) 2.9 %; Monocytes # (auto) 0.37 K/uL (0.11-0.59); Monocytes % (auto) 2.3 %; Neutrophils # (auto) 15.34 K/uL (1.4-6.5); Neutrophils % (auto) 93.5 %
[2020-10-16 07:52] LABS: Albumin Globulin Ratio 0.3 (0.9-2); Albumin Level 1.8 gm/dl (3.4-5.0); BUN Creatinine Ratio 18.2 (10-20); Bilirubin,Total 0.4 mg/dl (0.2-1); Calcium 9.4 mg/dl (8.5-10.1); Creatinine Clr Calc Pharmacy 136.7 ml/min; Est GFR (African American) 129.7 ml/min; Est GFR (Non-African American) 111.9 ml/min; Globulin 6.6 gm/dl (2.5-4.0); Potassium 4.4 mmol/L (3.5-5.1); Total Protein 8.4 gm/dl (6.4-8.2)
[2020-10-16] MEDS ORDERED: AMOXICILLIN/CLAVULANATE 875 MG TAB PO SCH (08:00)
--- NOTE | 2020-10-16 08:13 | Gastrointestinal Consultation ---
Date of Consultation October 16, 2020 Assessment & Plan (1) Anemia: 50-year-old male with history of EtOH use, COPD, HTN, previous tobacco use, presenting with shortness of breath, found to be COVID positive and enlargement of his previously known right lung mass; now 10 cm. GI asked to evaluate for reported intermittent bouts of melena. Due to COVID pandemic, an extensive chart review was completed. Patient has had no active GI bleeding since admission, and Hgb remains stable, with no elevation in BUN, therefore it is unlikely that he is having an active upper GI bleed. Hemoglobin had not been checked since 2018, so unclear when he developed his mild normocytic anemia; perhaps this is in conjunction with his current illness or other comorbidities. He does seem to complain of GERD symptoms and intermittent trouble swallowing when he eats fast. - Would be reasonable to consider upper endoscopy on an outpt basis once he recovers from this acute episode. - Would not recommend inpatient endoscopy at this time as it likely would not be beneficial to him at this point given his other acute issues - Would recommend BID PPI - Avoid ETOH, tobacco use - Would monitor GI output and trend H&H, transfuse PRN - Would continue to monitor clinically, and should he develope active GI bleeding or instability, would reassess need for endoscopy at that time - Otherwise GI will sign off, please call with questions History of Present Illness Reason for Consultation: intermittent melena Requesting Physician: Dr. Gray Attending Physician: Ovidio Goodwin MD History of Present Illness This is a 50-year-old male with PMH COPD, chronic right upper lobe lung mass, HTN, GERD, previous tobacco use, daily alcohol use. He presented to the ER this morning with 3 weeks of shortness of breath, productive cough, 14 pound weight loss, poor appetite. He has a history of a mass in his right lung that was found many years ago, and has not had much follow-up regarding this. Patient was found to be Covid positive, and he has a very large (10.4 x 6.4 x 8 cm) cavitary lesion in the right lung (infectious vs malignant), along with enlarged right hilar/mediastinal lymph nodes, bilateral airspace opacities, and 3 cm airspace opacity in the LLL - for which work-up is underway. Labs on arrival include Hgb of 12, crit 35, MCV WNL, BUN 12, PLT 611, WBC 19 K, NA 128, K3.3, albumin 3.3, INR 1.2, lactate WNL. He reported a history of intermittent dark stools, and GI was asked to evaluate for intermittent melena. Today HGB remains stable at 11.8, with no elevation of BUN at 12, WBC 16 k. There is been no melena, hematochezia, or hematemesis since admission. His vital signs are stable. Extensive chart review was completed using [facility] and [facility] records. Previous HGB back in 2018 was 16; he's had no labs since then. Pt reported to PCP that he has had intermittent problems swallowing since 2005; if he eats too quickly food doesn't go down He has certain days where it doesn't bother him at all. If he eats slowly, food goes down OK but otherwise not. He has severe GERD especially if lays down. He takes occasional omeprazole OTC which apparently helps. He drinks a significant amt of alcohol (6-10 drinks a day, more on the weekend). He denied nausea vomiting diarrhea or abdominal pain, fever. He is not a smoker. He has not undergone endoscopy. Allergies Allergy/AdvReac Type Severity Reaction Status Date / Time No Known Allergies Allergy Unverified 10/15/20 17:07 Home Medications Medication Instructions Recorded Confirmed Type albuterol sulfate 0 mg INHALATION ONCE 10/15/20 10/15/20 History albuterol sulfate 90 mcg/actuation 2 puff INHALATION QID 10/15/20 10/15/20 History aerosol inhaler (ProAir HFA) amoxicillin 875 mg-potassium 1 tab PO Q12H 10/15/20 10/15/20 History clavulanate 125 mg tablet (Augmentin) azithromycin 250 mg tablet 250 mg PO DIRECTED 10/15/20 10/15/20 History (Zithromax Z-Ludwig) elderberry fruit 200 mg capsule 200 mg PO ONCE 10/15/20 10/15/20 History fluticasone 250 mcg-salmeterol 50 1 inh INHALATION BID 10/15/20 10/15/20 History mcg/dose blistr powdr for inhalation (Advair Diskus) prednisone 10 mg tablet 10 mg PO DIRECTED 10/15/20 10/15/20 History Patient History Medical History Lung mass Social History Smoking Status: Never smoker Hx Alcohol Use: Yes Alcohol type: beer and hard liquor Hx Substance Use: No Preferred Language: Ethiopian Communication Ability: Effective Beliefs That Will Affect Care: None Current Living Situation: Alone Feels Safe at Home: Yes Assistive Devices: None Results & Data ([facility]) Vital Signs (Past 12 Hours) Vital Signs Temp Pulse Pulse Resp BP BP Pulse Ox 10/16/20 07:27 107 H 16 93 10/16/20 07:00 75 10/16/20 03:45 90 10/16/20 03:18 36.6 C 80 16 110/70 99 10/15/20 23:08 36.8 C 90 18 112/78 96 10/15/20 21:45 94 H 22 121/80 97 10/15/20 21:30 97 H 16 122/84 96 10/15/20 20:40 100 H 16 124/84 95 10/15/20 20:30 106 H 17 128/93 96 Laboratory Results 10/16/20 10/16/20 10/16/20 Range/Units 06:43 06:43 06:43 WBC 16.40 H (4.8-10.8) K/uL RBC 3.71 L (4.7-6.1) M/uL Hgb 11.8 L (14.0-18.0) g/dL Hct 34.9 L (42-52) % MCV 94.1 (80-100) fL MCH 31.8 (25-34) pg MCHC 33.8 (32-36) g/dL RDW Std Deviation 47.7 H (36.4-46.3) fL RDW Coeff of Bryce 13.9 (11.5-14.5) % Plt Count 577 H (130-400) K/uL MPV 9.2 (7.4-10.4) fL Immature Gran % (Auto) 1.2 % Neut % (Auto) 93.5 % Lymph % (Auto) 2.9 % Millard % (Auto) 2.3 % Eos % (Auto) 0.0 % Baso % (Auto) 0.1 % Reticulocyte % (Auto) (0.5-2.0) % Neut # (Auto) 15.34 H (1.4-6.5) K/uL Lymph # (Auto) 0.48 L (1.2-3.4) K/uL Millard # (Auto) 0.37 (0.11-0.59) K/uL Eos # (Auto) 0.00 (0-0.5) K/uL Baso # (Auto) 0.02 (0-0.2) K/uL Reticulocyte # (0.02-0.10) 10^6/uL Immature Gran # (Auto) 0.19 H (0.00-0.02) K/uL PT (9.0-12.0) Seconds INR (0.9-1.1) APTT (21.0-31.0) Seconds PTT Ratio Sodium 132 L (136-145) mmol/L Potassium 4.4 D (3.5-5.1) mmol/L Chloride 100 (98-107) mmol/L Carbon Dioxide 26 (21-32) mmol/L Anion Gap 6.0 (3-11) BUN 12 (7-18) mg/dl Creatinine 0.66 Cancelled (0.6-1.4) mg/dl Est Cr Clr Drug Dosing 136.7 Cancelled ml/min Est GFR ( Amer) 129.7 Cancelled ml/min Est GFR (Non-Af Amer) 111.9 Cancelled ml/min BUN/Creatinine Ratio 18.2 (10-20) Glucose 137 H (70-99) mg/dl Osmolality (280-300) mOsm/kg Lactate (0.4-2.0) mmol/L Calcium 9.4 (8.5-10.1) mg/dl Magnesium (1.8-2.4) mg/dl Iron (35-175) mcg/dl TIBC (250-450) mcg/dl Transferrin (200-360) mg/dl Ferritin (8-388) ng/ml Total Bilirubin 0.4 (0.2-1) mg/dl AST 28 (15-37) U/L ALT 33 (12-78) U/L Alkaline Phosphatase 85 (45-117) U/L Troponin I (0-0.045) ng/ml Total Protein 8.4 H (6.4-8.2) gm/dl Albumin 1.8 L (3.4-5.0) gm/dl Globulin 6.6 H (2.5-4.0) gm/dl Albumin/Globulin Ratio 0.3 L (0.9-2) Vitamin B12 (193-986) pg/ml Folate (>5.38) ng/ml TSH (0.300-4.500) uIu/ml Nasal Screen MRSA (PCR) (Negative) Ethyl Alcohol mg/dL (0-3) mg/dl COVID-19 Eval Order SARS-CoV-2 (PCR) (Negative) TB Test (QFT) Gold Plus TB Test (QFT) Nil TB Test Mitogen - Nil TB Test Ag - Nil 1 TB Test Ag - Nil 2 Blood Type Antibody Screen 10/16/20 10/15/20 10/15/20 Range/Units 05:50 21:37 21:37 WBC (4.8-10.8) K/uL RBC (4.7-6.1) M/uL Hgb (14.0-18.0) g/dL Hct (42-52) % MCV (80-100) fL MCH (25-34) pg MCHC (32-36) g/dL RDW Std Deviation (36.4-46.3) fL RDW Coeff of Bryce (11.5-14.5) % Plt Count (130-400) K/uL MPV (7.4-10.4) fL Immature Gran % (Auto) % Neut % (Auto) % Lymph % (Auto) % Millard % (Auto) % Eos % (Auto) % Baso % (Auto) % Reticulocyte % (Auto) (0.5-2.0) % Neut # (Auto) (1.4-6.5) K/uL Lymph # (Auto) (1.2-3.4) K/uL Millard # (Auto) (0.11-0.59) K/uL Eos # (Auto) (0-0.5) K/uL Baso # (Auto) (0-0.2) K/uL Reticulocyte # (0.02-0.10) 10^6/uL Immature Gran # (Auto) (0.00-0.02) K/uL PT (9.0-12.0) Seconds INR (0.9-1.1) APTT (21.0-31.0) Seconds PTT Ratio Sodium (136-145) mmol/L Potassium (3.5-5.1) mmol/L Chloride (98-107) mmol/L Carbon Dioxide (21-32) mmol/L Anion Gap (3-11) BUN (7-18) mg/dl Creatinine (0.6-1.4) mg/dl Est Cr Clr Drug Dosing ml/min Est GFR ( Amer) ml/min Est GFR (Non-Af Amer) ml/min BUN/Creatinine Ratio (10-20) Glucose (70-99) mg/dl Osmolality (280-300) mOsm/kg Lactate (0.4-2.0) mmol/L Calcium (8.5-10.1) mg/dl Magnesium (1.8-2.4) mg/dl Iron (35-175) mcg/dl TIBC (250-450) mcg/dl Transferrin (200-360) mg/dl Ferritin (8-388) ng/ml Total Bilirubin (0.2-1) mg/dl AST (15-37) U/L ALT (12-78) U/L Alkaline Phosphatase (45-117) U/L Troponin I (0-0.045) ng/ml Total Protein (6.4-8.2) gm/dl Albumin (3.4-5.0) gm/dl Globulin (2.5-4.0) gm/dl Albumin/Globulin Ratio (0.9-2) Vitamin B12 652 (193-986) pg/ml Folate 9.10 (>5.38) ng/ml TSH (0.300-4.500) uIu/ml Nasal Screen MRSA (PCR) Negative (Negative) Ethyl Alcohol mg/dL < 3.0 (0-3) mg/dl COVID-19 Eval Order SARS-CoV-2 (PCR) (Negative) TB Test (QFT) Gold Plus TB Test (QFT) Nil TB Test Mitogen - Nil TB Test Ag - Nil 1 TB Test Ag - Nil 2 Blood Type Antibody Screen 10/15/20 10/15/20 10/15/20 Range/Units 21:37 21:37 21:37 WBC (4.8-10.8) K/uL RBC (4.7-6.1) M/uL Hgb 11.1 L (14.0-18.0) g/dL Hct 32.5 L (42-52) % MCV (80-100) fL MCH (25-34) pg MCHC (32-36) g/dL RDW Std Deviation (36.4-46.3) fL RDW Coeff of Bryce (11.5-14.5) % Plt Count (130-400) K/uL MPV (7.4-10.4) fL Immature Gran % (Auto) % Neut % (Auto) % Lymph % (Auto) % Millard % (Auto) % Eos % (Auto) % Baso % (Auto) % Reticulocyte % (Auto) 1.2 (0.5-2.0) % Neut # (Auto) (1.4-6.5) K/uL Lymph # (Auto) (1.2-3.4) K/uL Millard # (Auto) (0.11-0.59) K/uL Eos # (Auto) (0-0.5) K/uL Baso # (Auto) (0-0.2) K/uL Reticulocyte # 0.04 (0.02-0.10) 10^6/uL Immature Gran # (Auto) (0.00-0.02) K/uL PT (9.0-12.0) Seconds INR (0.9-1.1) APTT (21.0-31.0) Seconds PTT Ratio Sodium 130 L (136-145) mmol/L Potassium (3.5-5.1) mmol/L Chloride (98-107) mmol/L Carbon Dioxide (21-32) mmol/L Anion Gap (3-11) BUN (7-18) mg/dl Creatinine (0.6-1.4) mg/dl Est Cr Clr Drug Dosing ml/min Est GFR ( Amer) ml/min Est GFR (Non-Af Amer) ml/min BUN/Creatinine Ratio (10-20) Glucose (70-99) mg/dl Osmolality (280-300) mOsm/kg Lactate (0.4-2.0) mmol/L Calcium (8.5-10.1) mg/dl Magnesium (1.8-2.4) mg/dl Iron 20 L (35-175) mcg/dl TIBC 115 L (250-450) mcg/dl Transferrin 99 L (200-360) mg/dl Ferritin 1590.7 H (8-388) ng/ml Total Bilirubin (0.2-1) mg/dl AST (15-37) U/L ALT (12-78) U/L Alkaline Phosphatase (45-117) U/L Troponin I (0-0.045) ng/ml Total Protein (6.4-8.2) gm/dl Albumin (3.4-5.0) gm/dl Globulin (2.5-4.0) gm/dl Albumin/Globulin Ratio (0.9-2) Vitamin B12 (193-986) pg/ml Folate (>5.38) ng/ml TSH (0.300-4.500) uIu/ml Nasal Screen MRSA (PCR) (Negative) Ethyl Alcohol mg/dL (0-3) mg/dl COVID-19 Eval Order SARS-CoV-2 (PCR) (Negative) TB Test (QFT) Gold Plus TB Test (QFT) Nil TB Test Mitogen - Nil TB Test Ag - Nil 1 TB Test Ag - Nil 2 Blood Type A Positive Antibody Screen NEGATIVE 10/15/20 10/15/20 10/15/20 Range/Units 18:18 18:18 17:40 WBC (4.8-10.8) K/uL RBC (4.7-6.1) M/uL Hgb (14.0-18.0) g/dL Hct (42-52) % MCV (80-100) fL MCH (25-34) pg MCHC (32-36) g/dL RDW Std Deviation (36.4-46.3) fL RDW Coeff of Bryce (11.5-14.5) % Plt Count (130-400) K/uL MPV (7.4-10.4) fL Immature Gran % (Auto) % Neut % (Auto) % Lymph % (Auto) % Millard % (Auto) % Eos % (Auto) % Baso % (Auto) % Reticulocyte % (Auto) (0.5-2.0) % Neut # (Auto) (1.4-6.5) K/uL Lymph # (Auto) (1.2-3.4) K/uL Millard # (Auto) (0.11-0.59) K/uL Eos # (Auto) (0-0.5) K/uL Baso # (Auto) (0-0.2) K/uL Reticulocyte # (0.02-0.10) 10^6/uL Immature Gran # (Auto) (0.00-0.02) K/uL PT (9.0-12.0) Seconds INR (0.9-1.1) APTT (21.0-31.0) Seconds PTT Ratio Sodium (136-145) mmol/L Potassium (3.5-5.1) mmol/L Chloride (98-107) mmol/L Carbon Dioxide (21-32) mmol/L Anion Gap (3-11) BUN (7-18) mg/dl Creatinine (0.6-1.4) mg/dl Est Cr Clr Drug Dosing ml/min Est GFR ( Amer) ml/min Est GFR (Non-Af Amer) ml/min BUN/Creatinine Ratio (10-20) Glucose (70-99) mg/dl Osmolality (280-300) mOsm/kg Lactate 1.4 (0.4-2.0) mmol/L Calcium (8.5-10.1) mg/dl Magnesium (1.8-2.4) mg/dl Iron (35-175) mcg/dl TIBC (250-450) mcg/dl Transferrin (200-360) mg/dl Ferritin (8-388) ng/ml Total Bilirubin (0.2-1) mg/dl AST (15-37) U/L ALT (12-78) U/L Alkaline Phosphatase (45-117) U/L Troponin I (0-0.045) ng/ml Total Protein (6.4-8.2) gm/dl Albumin (3.4-5.0) gm/dl Globulin (2.5-4.0) gm/dl Albumin/Globulin Ratio (0.9-2) Vitamin B12 (193-986) pg/ml Folate (>5.38) ng/ml TSH (0.300-4.500) uIu/ml Nasal Screen MRSA (PCR) (Negative) Ethyl Alcohol mg/dL (0-3) mg/dl COVID-19 Eval Order SARS-CoV-2 (PCR) POSITIVE A* (Negative) TB Test (QFT) Gold Plus Pending TB Test (QFT) Nil Pending TB Test Mitogen - Nil Pending TB Test Ag - Nil 1 Pending TB Test Ag - Nil 2 Pending Blood Type Antibody Screen 10/15/20 10/15/20 10/15/20 Range/Units 17:40 17:19 17:19 WBC (4.8-10.8) K/uL RBC (4.7-6.1) M/uL Hgb (14.0-18.0) g/dL Hct (42-52) % MCV (80-100) fL MCH (25-34) pg MCHC (32-36) g/dL RDW Std Deviation (36.4-46.3) fL RDW Coeff of Bryce (11.5-14.5) % Plt Count (130-400) K/uL MPV (7.4-10.4) fL Immature Gran % (Auto) % Neut % (Auto) % Lymph % (Auto) % Millard % (Auto) % Eos % (Auto) % Baso % (Auto) % Reticulocyte % (Auto) (0.5-2.0) % Neut # (Auto) (1.4-6.5) K/uL Lymph # (Auto) (1.2-3.4) K/uL Millard # (Auto) (0.11-0.59) K/uL Eos # (Auto) (0-0.5) K/uL Baso # (Auto) (0-0.2) K/uL Reticulocyte # (0.02-0.10) 10^6/uL Immature Gran # (Auto) (0.00-0.02) K/uL PT (9.0-12.0) Seconds INR (0.9-1.1) APTT (21.0-31.0) Seconds PTT Ratio Sodium 128 L (136-145) mmol/L Potassium 3.3 L (3.5-5.1) mmol/L Chloride 95 L (98-107) mmol/L Carbon Dioxide 25 (21-32) mmol/L Anion Gap 8.0 (3-11) BUN 12 (7-18) mg/dl Creatinine 0.72 (0.6-1.4) mg/dl Est Cr Clr Drug Dosing 125.3 ml/min Est GFR ( Amer) 125.2 ml/min Est GFR (Non-Af Amer) 108.0 ml/min BUN/Creatinine Ratio 17.1 (10-20) Glucose 101 H (70-99) mg/dl Osmolality 274 L (280-300) mOsm/kg Lactate (0.4-2.0) mmol/L Calcium 9.2 (8.5-10.1) mg/dl Magnesium 2.2 (1.8-2.4) mg/dl Iron (35-175) mcg/dl TIBC (250-450) mcg/dl Transferrin (200-360) mg/dl Ferritin (8-388) ng/ml Total Bilirubin 0.6 (0.2-1) mg/dl AST 43 H (15-37) U/L ALT 40 (12-78) U/L Alkaline Phosphatase 92 (45-117) U/L Troponin I < 0.015 (0-0.045) ng/ml Total Protein 8.9 H (6.4-8.2) gm/dl Albumin 2.0 L (3.4-5.0) gm/dl Globulin 6.9 H (2.5-4.0) gm/dl Albumin/Globulin Ratio 0.3 L (0.9-2) Vitamin B12 (193-986) pg/ml Folate (>5.38) ng/ml TSH 1.350 (0.300-4.500) uIu/ml Nasal Screen MRSA (PCR) (Negative) Ethyl Alcohol mg/dL (0-3) mg/dl COVID-19 Eval Order Covid19 at [facility] SARS-CoV-2 (PCR) (Negative) TB Test (QFT) Gold Plus TB Test (QFT) Nil TB Test Mitogen - Nil TB Test Ag - Nil 1 TB Test Ag - Nil 2 Blood Type Antibody Screen 10/15/20 10/15/20 Range/Units 17:19 17:19 WBC 19.12 H (4.8-10.8) K/uL RBC 3.77 L (4.7-6.1) M/uL Hgb 12.2 L (14.0-18.0) g/dL Hct 35.0 L (42-52) % MCV 92.8 (80-100) fL MCH 32.4 (25-34) pg MCHC 34.9 (32-36) g/dL RDW Std Deviation 47.0 H (36.4-46.3) fL RDW Coeff of Bryce 13.8 (11.5-14.5) % Plt Count 611 H (130-400) K/uL MPV 8.9 (7.4-10.4) fL Immature Gran % (Auto) 0.8 % Neut % (Auto) 88.1 % Lymph % (Auto) 5.3 % Millard % (Auto) 4.9 % Eos % (Auto) 0.7 % Baso % (Auto) 0.2 % Reticulocyte % (Auto) (0.5-2.0) % Neut # (Auto) 16.84 H (1.4-6.5) K/uL Lymph # (Auto) 1.02 L (1.2-3.4) K/uL Millard # (Auto) 0.94 H (0.11-0.59) K/uL Eos # (Auto) 0.13 (0-0.5) K/uL Baso # (Auto) 0.03 (0-0.2) K/uL Reticulocyte # (0.02-0.10) 10^6/uL Immature Gran # (Auto) 0.16 H (0.00-0.02) K/uL PT 11.9 (9.0-12.0) Seconds INR 1.2 H (0.9-1.1) APTT 28.5 (21.0-31.0) Seconds PTT Ratio 1.1 Sodium (136-145) mmol/L Potassium (3.5-5.1) mmol/L Chloride (98-107) mmol/L Carbon Dioxide (21-32) mmol/L Anion Gap (3-11) BUN (7-18) mg/dl Creatinine (0.6-1.4) mg/dl Est Cr Clr Drug Dosing ml/min Est GFR ( Amer) ml/min Est GFR (Non-Af Amer) ml/min BUN/Creatinine Ratio (10-20) Glucose (70-99) mg/dl Osmolality (280-300) mOsm/kg Lactate (0.4-2.0) mmol/L Calcium (8.5-10.1) mg/dl Magnesium (1.8-2.4) mg/dl Iron (35-175) mcg/dl TIBC (250-450) mcg/dl Transferrin (200-360) mg/dl Ferritin (8-388) ng/ml Total Bilirubin (0.2-1) mg/dl AST (15-37) U/L ALT (12-78) U/L Alkaline Phosphatase (45-117) U/L Troponin I (0-0.045) ng/ml Total Protein (6.4-8.2) gm/dl Albumin (3.4-5.0) gm/dl Globulin (2.5-4.0) gm/dl Albumin/Globulin Ratio (0.9-2) Vitamin B12 (193-986) pg/ml Folate (>5.38) ng/ml TSH (0.300-4.500) uIu/ml Nasal Screen MRSA (PCR) (Negative) Ethyl Alcohol mg/dL (0-3) mg/dl COVID-19 Eval Order SARS-CoV-2 (PCR) (Negative) TB Test (QFT) Gold Plus TB Test (QFT) Nil TB Test Mitogen - Nil TB Test Ag - Nil 1 TB Test Ag - Nil 2 Blood Type Antibody Screen Diagnostic Findings CTA chest: FINDINGS: No pulmonary emboli are identified although the lower lobe pulmonary arteries are suboptimally opacified. There is a hiatal hernia. Size of the heart is normal. There is no thoracic aortic dissection. A prominent right paratracheal left node measures 1.3 x 0.9 cm. An enlarged right hilar node measures 1.8 x 1.5 cm. Note is made of a 10.4 x 6.4 x 8 cm thick-walled cavitary lesion within the right upper lobe. This contains an air-fluid level. There is extensive adjacent airspace opacity. In addition, there are numerous ill-defined small nodules throughout the lungs. The cavity abuts the chest wall. No associated bony destruction is present. There is no pneumothorax or pleural effusion. There is a 3.4 cm cystic focus with airspace opacity within the left lower lobe. No suspicious lesions are identified within visualized portions of the bony thorax. Visual portions of the upper abdomen are unremarkable. IMPRESSION: 1. No pulmonary emboli identified although lower lobe pulmonary arteries suboptimally opacified. 2. 10.4 x 6.4 x 8 cm thick-walled cavitary lesion within the right upper lobe which contains an air-fluid level. Adjacent airspace opacity. The CT appearance is nonspecific however an infectious process is favored and tuberculosis with possible endobronchial spread throughout the lungs is within the differential. In addition, a neoplastic process is also within the differential and therefore short-term imaging follow-up is recommended to ensure resolution. Findings discussed with Dr. Person at time of dictation. 3. Mildly enlarged right hilar lymph nodes and prominent mediastinal lymph nodes. These may be reactive. A neoplastic process could appear similar and therefore these should be assessed on subsequent CT to ensure resolution. 4. Small irregular airspace opacities throughout the lungs which favor an infectious process. 5. 3.4 cm cystic focus with airspace opacity within the left lower lobe. This should be assessed on follow-up CT as well. CXR: FINDINGS: There is no pneumothorax or pleural effusion. Note is made of an 8.3 cm cavitary lesion within the right upper lobe. There is adjacent airspace opacity. Cardiac size is normal. There is no evidence for pulmonary edema. IMPRESSION: 8.3 cm cavitary lesion within the right upper lobe with adjacent airspace opacity. This could reflect a cavitary pneumonia or a cavitary neoplasm. This can be further assessed with chest CT which has been ordered.
[2020-10-16] MEDS ORDERED: PIPERACILLIN/TAZOBACTAM 3.375 GM in DEXTROSE 5% 100 ML IV ONE (08:30)
[2020-10-16] MEDS: guaiFENesin 600 MG TABCR PO SCH ×2 (08:58→21:29)
[2020-10-16] MEDS ORDERED: AUGMENTIN~CONSULT PHARMACY PRN (09:00)
[2020-10-16] MEDS ORDERED: FLUTICASONE/VILANTEROL 200/25MCG 14 PUFFS/INHALER INH SCH (09:00)
[2020-10-16] MEDS: PANTOprazole 40 MG in SYRINGE 0 ML IV SCH ×2 (09:00→21:27)
[2020-10-16] MEDS ORDERED: PANTOprazole 40 MG TAB PO SCH ×2 (09:00)
[2020-10-16] MEDS: DOXYCYCLINE HYCLATE 100 MG CAP PO SCH ×2 (09:24→21:30)
--- NOTE | 2020-10-16 09:32 | Electrocardiogram Report ---
Test Reason : Blood Pressure : / mmHG Vent. Rate : 115 BPM Atrial Rate : 108 BPM P-R Int : 000 ms QRS Dur : 094 ms QT Int : 348 ms P-R-T Axes : 000 032 063 degrees QTc Int : 481 ms Poor data quality, interpretation may be adversely affected Probable Sinus tachycardia Abnormal ECG No previous ECGs available Confirmed by Cristian Gonzalez ([id number]) on 10/16/2020 9:32:40 AM Referred By: REFERRED SELF Confirmed By:Cristian Gonzalez
[2020-10-16] MEDS: PIPERACILLIN/TAZOBACTAM 3.375 GM in DEXTROSE 5% 100 ML IV SCH ×2 (15:00→21:27)
--- NOTE | 2020-10-16 18:12 | Hospitalist Progress Note ---
Date of Service October 16, 2020 Assessment & Plan (1) Sepsis: Plan: Sepsis COVID 19 Pneumonia Lung Mass H/O COPD -CTA:. No PE. 10.4 x 6.4 x 8 cm thick-walled cavitary lesion within the right upper lobe which contains an air-fluid level. Adjacent airspace opacity. The CT appearance is nonspecific however an infectious process is favored and tuberculosis with possible endobronchial spread throughout the lungs is within the differential. In addition, a neoplastic process is also within the differential and therefore short-term imaging follow-up is recommended to ensure resolution. Mildly enlarged right hilar lymph nodes and prominent mediastinal lymph nodes. These may be reactive. A neoplastic process could appear similar and therefore these should be assessed on subsequent CT to ensure resolution. Small irregular airspace opacities throughout the lungs which favor an infectious process. 3.4 cm cystic focus with airspace opacity within the left lower lobe. This should be assessed on follow-up CT as well. - Lung Mass has grown in Size from prior CT in 2002 -Saturating well on room air -R/O Tuberculosis -Quantiferon gold for TB pending -Check sputum for AFB Continue Zosyn empirically Blood cultures pending Speech therapy evaluation completed Continue aspiration precautions Plan for bronchoscopy given Covid pneumonia Normocytic Anemia Likely Multifactorial Iron deficiency Suspected Melena H/O GERD Monitor CBC Transfuse PRBCs as needed Continue PPI twice daily No plan for endoscopy secondary to pneumonia as per GI Appreciate GI input Start Iron supplements Hyponatremia Multifactorial: poor p.o. intake, alcohol intake Alcohol abuse Past tobacco abuse Continue gabapentin protocol Continue thiamine, folic acid Monitor for alcohol withdrawal Counseled to quit drinking Sodium levels slowly improving Monitor Sodium :130>132 DVT Px: SCDs for now Code Status Full code Admission and Anticipated Discharge Date Admission Date: October 15, 2020 Subjective Patient is seen and examined at bedside States feeling much better today Less cough today Denies chest pain, shortness of breath, dizziness, nausea, abdominal pain No bleeding issues today Review of Systems Review of Systems: All systems reviewed & are unremarkable except as noted in Subjective Physical Exam Physical Exam: Physical Exam: Vitals signs as noted above General Appearance:Moderately built and nourished, no apparent distress Head: normocephalic, Atraumatic Eyes: normal inspection, EOMI Neck: supple, Trachea midline Respiratory/Chest: Decreased breath sounds, CTA Cardiovascular: S1, S2, No murmur Abdomen/GI:Soft, Non tender, Bowel sounds present Extremities/Musculoskeletal:normal inspection, no edema Neurologic/Psych:AAOX3, grossly no focal neurological deficits Skin: normal color, warm Results & Data Results & Data ([facility]) Vital Signs (Past 12 Hours) Vital Signs Temp Pulse Pulse Resp BP Pulse Ox 10/16/20 15:00 36.5 C 97 H 18 115/76 97 10/16/20 13:04 92 H 18 97 10/16/20 11:26 36.9 C 98 H 18 116/81 97 10/16/20 08:19 36.5 C 83 18 103/71 96 10/16/20 07:27 107 H 16 93 10/16/20 07:00 75 Laboratory Results Short CBC 10/15/20 10/16/20 Range/Units 21:37 06:43 WBC 16.40 H (4.8-10.8) K/uL Hgb 11.1 L 11.8 L (14.0-18.0) g/dL Hct 32.5 L 34.9 L (42-52) % Plt Count 577 H (130-400) K/uL BMP 10/15/20 10/15/20 10/16/20 17:19 21:37 06:43 Sodium 128 L 130 L Potassium 3.3 L Chloride 95 L Carbon Dioxide 25 BUN 12 Creatinine 0.72 Cancelled Glucose 101 H Calcium 9.2 10/16/20 06:43 Sodium 132 L Potassium 4.4 D Chloride 100 Carbon Dioxide 26 BUN 12 Creatinine 0.66 Glucose 137 H Calcium 9.4 Cardiac Enzymes 10/15/20 Range/Units 17:19 Troponin I < 0.015 (0-0.045) ng/ml Liver Function 10/15/20 10/16/20 Range/Units 17:19 06:43 Total Bilirubin 0.6 0.4 (0.2-1) mg/dl AST 43 H 28 (15-37) U/L ALT 40 33 (12-78) U/L Alkaline Phosphatase 92 85 (45-117) U/L Albumin 2.0 L 1.8 L (3.4-5.0) gm/dl
[2020-10-16] MEDS ORDERED: UMECLIDINIUM BROMIDE 62.5MCG/BLISTER 7 PUFFS/INHALER INH SCH (21:00)
[2020-10-16] MEDS: FERROUS SULFATE 325 MG/7.4 ML UDP PO SCH (23:00)
[2020-10-17] MEDS: LEVALBUTEROL 1.25MG/0.5ML NEB INH SCH ×5 (00:11→22:36)
[2020-10-17] MEDS: IPRATROPIUM BROMIDE NEB SOLN 0.02% 2.5 ML VIAL INH SCH ×4 (00:12→22:36)
[2020-10-17] MEDS: GABAPENTIN 600 MG TAB PO SCH ×3 (04:37→19:48)
[2020-10-17] MEDS: PIPERACILLIN/TAZOBACTAM 3.375 GM in DEXTROSE 5% 100 ML IV SCH ×3 (05:51→19:51)
[2020-10-17 06:49] LABS: Hematocrit (blood only) 33.4 % (42-52); Mean Corpuscular Hemoglobin 31.3 pg (25-34); Mean Corpuscular Hgb Conc 32.9 g/dL (32-36); Mean Corpuscular Volume 94.9 fL (80-100); Mean Platelet Volume 9.1 fL (7.4-10.4); Platelet Count 598 K/uL (130-400); RDW Standard Deviation 48.6 fL (36.4-46.3); Red Blood Count 3.52 M/uL (4.7-6.1); White Blood Count 16.61 K/uL (4.8-10.8)
[2020-10-17 07:16] LABS: BUN Creatinine Ratio 21.3 (10-20); Calcium 8.8 mg/dl (8.5-10.1); Creatinine Clr Calc Pharmacy 132.7 ml/min; Est GFR (African American) 128.2 ml/min; Est GFR (Non-African American) 110.6 ml/min; Magnesium 1.7 mg/dl (1.8-2.4); Potassium 4.1 mmol/L (3.5-5.1)
--- NOTE | 2020-10-17 08:28 | Pulmonology Progress Note ---
Date of Service October 17, 2020 Assessment & Plan (1) Cavitary lung disease: (2) COPD (chronic obstructive pulmonary disease): (3) COVID-19: (4) Pneumonia: Laterality: right Lung location: upper lobe of lung Pneumonia type: due to unspecified organism Qualified Code(s): J18.9 - Pneumonia, unspecified organism (5) Mycetoma: Plan: CT chest 10/15/2020 personally reviewed: Right upper lobe 11 x 7 cm thick cavitary lesion with surrounding groundglass infiltrate Tree-in-bud opacities appreciated in the left upper left lower as well as the right middle lobe Reactive mediastinal lymphadenopathy especially 10R, 4R ''Patient was in the hospital back in 2002. He had a CT chest done at that time . Images are not in our system. He had a right upper lobe mass at that time for which he had a bronchoscopy done with BAL and transbronchial biopsy BAL as well as transbronchial biopsies were negative for malignancy'' --Right upper lobe cavitary lesion Thick cavitory wall Differential includes infectious which includes TB, patient likely has mycetoma within it as well Malignancy can also present the same way differential including squamous cell No eosinophilia appreciated on the CBC Continue with broad-spectrum antibiotics covering anaerobes as well as Pseudomonas Continue with atypical coverage Follow urine Legionella as well as mycoplasma IgM Follow-up Gold QuantiFERON [employer] culture and smear x3 Follow-up galactomannan --COVID-19 pneumonia Infiltrates on the CAT scan do not correlate with COVID-19 No need to treat COVID-19 as the patient is not hypoxic If the patient does get hypoxic then treatment with remdesivir could be thought of --COPD with emphysema On Advair at home Would recommend the patient to be on Anoro. Plan: Follow-up Gold QuantiFERON. If negative the possibility of patient having active TB is very low Patient had lesion in the right upper lobe for a while this could be just progression Possibility of cancer is still high Given the recent positive COVID-19. Plan would be to have bronchoscopy done as an outpatient after 21 days. Patient was told in and that detail that is very high possibility could be cancer and he needs to follow-up. Follow-up galactomannan. Patient wants to go home. Given that we are ruling out TB on this gold QuantiFERON is negative patient should be in the hospital Case was discussed with Dr. Goodwin and RN Please note the above document was generated using voice recognition software. It may contain grammatical, syntax or spelling errors.Any formal questions or concerns about the content, text or information contained within the body of this dictation should be directly addressed to the provider for clarification. Admission and Anticipated Discharge Date Admission Date: October 15, 2020 Subjective Patient seen today last note. Not in acute distress. Saturating well on room air. Has been afebrile. Review of Systems Review of Systems: Other Physical Exam Physical Exam: Patient not examined due to coronavirus restrictions and attempts to minimize exposure to staff and consider PPE. Please refer to the hospitalist exam for complete details. Results & Data Results & Data ([facility]) Vital Signs (Past 12 Hours) Vital Signs Temp Pulse Resp BP Pulse Ox 10/17/20 07:23 88 22 92 10/17/20 04:19 36.5 C 80 18 142/95 H 95 10/16/20 23:59 88 18 98 10/17/20 06:18 10/17/20 06:18 PG Care Time/CCT Total # of Minutes Spent Total Time Spent with Patient: Total time spent is greater than 50% in coordination of care (as documented) at patient's floor/unit and/or counseling patient: Coding Level of Care Code 11825 Subseq Hosp Care Lvl 2 Diagnoses Cavitary lung disease J98.4 COPD (chronic obstructive pulmonary disease) J44.9 COVID-19 U07.1 Pneumonia J18.9 Laterality: right Lung location: upper lobe of lung Pneumonia type: due to unspecified organism 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
[2020-10-17] MEDS ORDERED: MAGNESIUM SULFATE / D5W 1 GM/100 ML BAG IV ONE (08:30)
[2020-10-17] MEDS: PANTOprazole 40 MG in SYRINGE 0 ML IV SCH ×2 (08:42→19:51)
[2020-10-17] MEDS: FOLIC ACID 1 MG TAB PO SCH (08:42)
[2020-10-17] MEDS: THIAMINE HCL 100 MG TAB PO SCH (08:43)
[2020-10-17] MEDS: guaiFENesin 600 MG TABCR PO SCH ×2 (08:43→19:50)
[2020-10-17] MEDS: UMECLIDINIUM/VILANTEROL 62.5/25MCG 7 PUFFS/INHALER INH SCH (09:12)
[2020-10-17] MEDS ORDERED: LEVALBUTEROL 1.25MG/0.5ML NEB INH PRN (09:16)
[2020-10-17] MEDS ORDERED: IPRATROPIUM BROMIDE NEB SOLN 0.02% 2.5 ML VIAL INH PRN (09:16)
[2020-10-17] MEDS ORDERED: ALBUTEROL HFA 8 GM INHALER INH PRN (09:17)
[2020-10-17] MEDS: DOXYCYCLINE HYCLATE 100 MG CAP PO SCH ×2 (09:32→19:49)
[2020-10-17] MEDS: ACETYLCYSTEINE 10% INHAL SOLN 4 ML **DISPENSED BY RESP. INH SCH ×3 (12:07→22:36)
[2020-10-17] MEDS: FERROUS SULFATE 325 MG/7.4 ML UDP PO SCH (13:23)
--- NOTE | 2020-10-17 17:15 | Hospitalist Progress Note ---
Date of Service October 17, 2020 Assessment & Plan (1) Sepsis: Plan: Sepsis COVID 19 Pneumonia Lung Mass H/O COPD -CTA:. No PE. 10.4 x 6.4 x 8 cm thick-walled cavitary lesion within the right upper lobe which contains an air-fluid level. Adjacent airspace opacity. The CT appearance is nonspecific however an infectious process is favored and tuberculosis with possible endobronchial spread throughout the lungs is within the differential. In addition, a neoplastic process is also within the differential and therefore short-term imaging follow-up is recommended to ensure resolution. Mildly enlarged right hilar lymph nodes and prominent mediastinal lymph nodes. These may be reactive. A neoplastic process could appear similar and therefore these should be assessed on subsequent CT to ensure resolution. Small irregular airspace opacities throughout the lungs which favor an infectious process. 3.4 cm cystic focus with airspace opacity within the left lower lobe. This should be assessed on follow-up CT as well. - Lung Mass has grown in Size from prior CT in 2002 -Saturating well on room air -R/O Tuberculosis -Quantiferon gold for TB pending -Check sputum for AFB Continue Zosyn empirically Blood cultures no growth to date Speech therapy evaluation completed Continue aspiration precautions No plan for bronchoscopy given Covid pneumonia currently , will need it eventually Normal Procalcitonin Follow-up serological studies Normocytic Anemia Likely Multifactorial Iron deficiency Suspected Melena H/O GERD Monitor CBC Transfuse PRBCs as needed Continue PPI twice daily No plan for endoscopy secondary to pneumonia as per GI Appreciate GI input Continue Iron supplements Hyponatremia Multifactorial: poor p.o. intake, alcohol intake Alcohol abuse Past tobacco abuse Continue gabapentin protocol Continue thiamine, folic acid Monitor for alcohol withdrawal Counseled to quit drinking Sodium levels normalized Monitor Sodium :130>132>138 Hypomagnesemia Replace electrolytes as needed DVT Px: SCDs for now Code Status Full code Admission and Anticipated Discharge Date Admission Date: October 15, 2020 Subjective Patient is seen and examined at bedside No new complaints Saturating well on room air Discussed with pulmonology today No significant cough Denies chest pain, shortness of breath, dizziness, nausea, abdominal pain Review of Systems Review of Systems: All systems reviewed & are unremarkable except as noted in Subjective Physical Exam Physical Exam: Physical Exam: Vitals signs as noted above General Appearance:Moderately built and nourished, no apparent distress Head: normocephalic, Atraumatic Eyes: normal inspection, EOMI Neck: supple, Trachea midline Respiratory/Chest: Decreased breath sounds, CTA Cardiovascular: S1, S2, No murmur Abdomen/GI:Soft, Non tender, Bowel sounds present Extremities/Musculoskeletal:normal inspection, no edema Neurologic/Psych:AAOX3, grossly no focal neurological deficits Skin: normal color, warm Results & Data Results & Data ([facility]) Vital Signs (Past 12 Hours) Vital Signs Temp Pulse Pulse Resp BP Pulse Ox 10/17/20 15:10 36.6 C 97 H 20 106/75 97 10/17/20 14:53 78 20 95 10/17/20 11:41 36.6 C 94 H 16 110/77 97 10/17/20 08:27 36.6 C 106 H 24 107/72 95 10/17/20 08:10 54 L 10/17/20 07:23 88 22 92 Laboratory Results Short CBC 10/17/20 Range/Units 06:18 WBC 16.61 H (4.8-10.8) K/uL Hgb 11.0 L (14.0-18.0) g/dL Hct 33.4 L (42-52) % Plt Count 598 H (130-400) K/uL BMP 10/17/20 06:18 Sodium 138 Potassium 4.1 Chloride 105 Carbon Dioxide 28 BUN 15 Creatinine 0.68 Glucose 95 Calcium 8.8
[2020-10-18] MEDS: PIPERACILLIN/TAZOBACTAM 3.375 GM in DEXTROSE 5% 100 ML IV SCH ×3 (06:21→19:59)
[2020-10-18] MEDS: IPRATROPIUM BROMIDE NEB SOLN 0.02% 2.5 ML VIAL INH SCH ×3 (07:13→22:58)
[2020-10-18] MEDS: LEVALBUTEROL 1.25MG/0.5ML NEB INH SCH ×3 (07:13→22:58)
[2020-10-18] MEDS: ACETYLCYSTEINE 10% INHAL SOLN 4 ML **DISPENSED BY RESP. INH SCH ×3 (07:13→22:58)
[2020-10-18] MEDS: THIAMINE HCL 100 MG TAB PO SCH (07:54)
[2020-10-18] MEDS: guaiFENesin 600 MG TABCR PO SCH ×2 (07:55→19:59)
[2020-10-18] MEDS: FOLIC ACID 1 MG TAB PO SCH (07:55)
[2020-10-18] MEDS: UMECLIDINIUM/VILANTEROL 62.5/25MCG 7 PUFFS/INHALER INH SCH (07:56)
[2020-10-18 08:49] LABS: Hematocrit (blood only) 35.8 % (42-52); Hemoglobin 11.7 g/dL (14.0-18.0); Mean Corpuscular Hemoglobin 32.1 pg (25-34); Mean Corpuscular Hgb Conc 32.7 g/dL (32-36); Mean Corpuscular Volume 98.1 fL (80-100); Mean Platelet Volume 9.1 fL (7.4-10.4); Platelet Count 608 K/uL (130-400); RDW Coefficient of Variation 14.2 % (11.5-14.5); RDW Standard Deviation 50.8 fL (36.4-46.3); Red Blood Count 3.65 M/uL (4.7-6.1); White Blood Count 13.68 K/uL (4.8-10.8)
[2020-10-18 09:05] LABS: BUN Creatinine Ratio 15.7 (10-20); Creatinine Clr Calc Pharmacy 125.3 ml/min; Est GFR (African American) 125.2 ml/min; Magnesium 1.8 mg/dl (1.8-2.4); Potassium 3.8 mmol/L (3.5-5.1)
[2020-10-18] MEDS: GABAPENTIN 600 MG TAB PO SCH (09:49)
[2020-10-18] MEDS: PANTOprazole 40 MG in SYRINGE 0 ML IV SCH ×2 (09:49→20:01)
[2020-10-18] MEDS: DOXYCYCLINE HYCLATE 100 MG CAP PO SCH ×2 (09:49→20:00)
--- NOTE | 2020-10-18 10:39 | Pulmonology Progress Note ---
Date of Service October 18, 2020 Assessment & Plan (1) Cavitary lung disease: (2) COPD (chronic obstructive pulmonary disease): (3) COVID-19: (4) Pneumonia: Laterality: right Lung location: upper lobe of lung Pneumonia type: due to unspecified organism Qualified Code(s): J18.9 - Pneumonia, unspecified organism (5) Mycetoma: Plan: CT chest 10/15/2020 personally reviewed: Right upper lobe 11 x 7 cm thick cavitary lesion with surrounding groundglass infiltrate Tree-in-bud opacities appreciated in the left upper left lower as well as the right middle lobe Reactive mediastinal lymphadenopathy especially 10R, 4R ''Patient was in the hospital back in 2002. He had a CT chest done at that abel e. Images are not in our system. He had a right upper lobe mass at that time for which he had a bronchoscopy done with BAL and transbronchial biopsy BAL as well as transbronchial biopsies were negative for malignancy'' --Right upper lobe cavitary lesion Thick cavitary wall Differential includes infectious which includes TB, patient likely has mycetoma within it as well Malignancy can also present the same way differential including squamous cell No eosinophilia appreciated on the CBC Continue with broad-spectrum antibiotics covering anaerobes as well as Pseudomonas Continue with atypical coverage Follow urine Legionella as well as mycoplasma IgM Follow-up Gold Quanti[employer]ON [employer] culture and smear x3 Follow-up galactomannan --COVID-19 pneumonia Infiltrates on the CAT scan do not correlate with COVID-19 No need to treat COVID-19 as the patient is not hypoxic If the patient does get hypoxic then treatment with remdesivir could be thought of --COPD with emphysema On Advair at home Would recommend the patient to be on Anoro. Plan: Follow-up Gold QuantiFERON. If negative the possibility of patient having active TB is very low Patient had lesion in the right upper lobe for a while this could be just progression Possibility of cancer is still high Given the recent positive COVID-19. Plan would be to have bronchoscopy done as an outpatient after 21 days. Patient was told in and that detail that is very high possibility could be cancer and he needs to follow-up. Follow-up galactomannan. Case was discussed with Dr. Goodwin and RN Please note the above document was generated using voice recognition software. It may contain grammatical, syntax or spelling errors.Any formal questions or concerns about the content, text or information contained within the body of this dictation should be directly addressed to the provider for clarification. Admission and Anticipated Discharge Date Admission Date: October 15, 2020 Subjective Patient seen and examined at bedside. No acute distress, no adverse events overnight. Overall he is doing well. Shortness of breath is improved. He is bringing up phlegm now. Has been using incentive spirometry and flutter valve. Denies any chest pain, no headache, no nausea, no vomiting. Review of Systems Review of Systems: All systems reviewed & are unremarkable except as noted in Subjective Physical Exam Physical Exam: Constitutional: No acute distress HEENT: EOMI, PERRLA, no cervical or supraclavicular lymphadenopathy Respiratory system: Decreased bilaterally, no wheeze, rhonchi, positive crackles bilateral lower lobes CVS: S1-S2 positive, no murmurs or gallops Abdomen: Soft, nontender, nondistended, positive bowel sounds x4 Extremities: +2 pulses bilaterally radialis/ dorsalis pedis, no cyanosis, no edema Neuro: Awake alert oriented x3 Psych: Normal mood and affect G/U: No Edwards Skin: no rashes, warm and dry Lymphatic: no cervical or axillary lymphadenopathy Results & Data Results & Data ([facility]) Vital Signs (Past 12 Hours) Vital Signs Temp Pulse Pulse Resp BP Pulse Ox 10/18/20 08:30 95 H 10/18/20 07:50 36.7 C 98 H 18 108/75 97 10/18/20 07:26 93 H 18 95 10/18/20 03:44 36.7 C 80 20 115/81 97 10/18/20 00:28 36.6 C 80 20 112/69 95 10/18/20 08:20 10/18/20 08:20 PG Care Time/CCT Total # of Minutes Spent Total Time Spent with Patient: Total time spent is greater than 50% in coordination of care (as documented) at patient's floor/unit and/or counseling patient: Coding Level of Care Code 02787 Subseq Hosp Care Lvl 3 Diagnoses Cavitary lung disease J98.4 COPD (chronic obstructive pulmonary disease) J44.9 COVID-19 U07.1 Pneumonia J18.9 Laterality: right Lung location: upper lobe of lung Pneumonia type: due to unspecified organism 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
[2020-10-18] MEDS: FERROUS SULFATE 325 MG/7.4 ML UDP PO SCH (12:05)
--- NOTE | 2020-10-18 14:35 | Hospitalist Progress Note ---
Date of Service October 18, 2020 Assessment & Plan (1) Sepsis: Plan: Sepsis COVID 19 Pneumonia Lung Mass DD: T.B., Malignancy H/O COPD -CTA:. No PE. 10.4 x 6.4 x 8 cm thick-walled cavitary lesion within the right upper lobe which contains an air-fluid level. Adjacent airspace opacity. The CT appearance is nonspecific however an infectious process is favored and tuberculosis with possible endobronchial spread throughout the lungs is within the differential. In addition, a neoplastic process is also within the differential and therefore short-term imaging follow-up is recommended to ensure resolution. Mildly enlarged right hilar lymph nodes and prominent mediastinal lymph nodes. These may be reactive. A neoplastic process could appear similar and therefore these should be assessed on subsequent CT to ensure resolution. Small irregular airspace opacities throughout the lungs which favor an infectious process. 3.4 cm cystic focus with airspace opacity within the left lower lobe. This should be assessed on follow-up CT as well. - Lung Mass has grown in Size from prior CT in 2002 -Saturating well on room air -Quantiferon gold for TB pending Continue Zosyn Day #3 Blood cultures no growth to date Speech therapy evaluation completed Continue aspiration precautions No plan for bronchoscopy given Covid pneumonia currently , will need it eventually Normal Procalcitonin Continue current medications Follow up sputum for AFB, galactomannan, Legionella, Mycoplasma Normocytic Anemia Likely Multifactorial Iron deficiency Suspected Melena H/O GERD Monitor CBC Transfuse PRBCs as needed Continue PPI twice daily No plan for endoscopy secondary to pneumonia as per GI Appreciate GI input Continue Iron supplements Hyponatremia Multifactorial: poor p.o. intake, alcohol intake Alcohol abuse Past tobacco abuse Continue gabapentin protocol Continue thiamine, folic acid Monitor for alcohol withdrawal Counseled to quit drinking Sodium levels normalized Monitor Sodium :130>132>138 Hypomagnesemia Replace electrolytes as needed DVT Px: SCDs for now Code Status Full code Admission and Anticipated Discharge Date Admission Date: October 15, 2020 Subjective Patient is seen and examined at bedside States having cough with brownish expectoration No new complaints Afebrile Denies chest pain, dyspnea, dizziness, nausea, abdominal pain Review of Systems Review of Systems: All systems reviewed & are unremarkable except as noted in Subjective Physical Exam Physical Exam: Physical Exam: Vitals signs as noted above General Appearance:Moderately built and nourished, no apparent distress Head: normocephalic, Atraumatic Eyes: normal inspection, EOMI Neck: supple, Trachea midline Respiratory/Chest: Decreased breath sounds, CTA Cardiovascular: S1, S2, No murmur Abdomen/GI:Soft, Non tender, Bowel sounds present Extremities/Musculoskeletal:normal inspection, no edema Neurologic/Psych:AAOX3, grossly no focal neurological deficits Skin: normal color, warm Results & Data Results & Data ([facility]) Vital Signs (Past 12 Hours) Vital Signs Temp Pulse Pulse Resp BP Pulse Ox 10/18/20 11:39 36.9 C 93 H 18 126/82 96 10/18/20 08:30 95 H 10/18/20 07:50 36.7 C 98 H 18 108/75 97 10/18/20 07:26 93 H 18 95 10/18/20 03:44 36.7 C 80 20 115/81 97 Laboratory Results Short CBC 10/18/20 Range/Units 08:20 WBC 13.68 H (4.8-10.8) K/uL Hgb 11.7 L (14.0-18.0) g/dL Hct 35.8 L (42-52) % Plt Count 608 H (130-400) K/uL BMP 10/18/20 08:20 Sodium 138 Potassium 3.8 Chloride 106 Carbon Dioxide 27 BUN 11 Creatinine 0.72 Glucose 98 Calcium 9.0
[2020-10-18 15:41] LABS: Quantiferon Mitogen-NIL 3.34 IU/mL; Quantiferon NIL 0.03 IU/mL; Quantiferon TB Gold Plus NEGATIVE (NEGATIVE)
[2020-10-19] MEDS: PIPERACILLIN/TAZOBACTAM 3.375 GM in DEXTROSE 5% 100 ML IV SCH (05:05)
[2020-10-19] MEDS: LEVALBUTEROL 1.25MG/0.5ML NEB INH SCH (07:07)
[2020-10-19] MEDS: IPRATROPIUM BROMIDE NEB SOLN 0.02% 2.5 ML VIAL INH SCH (07:08)
[2020-10-19] MEDS: ACETYLCYSTEINE 10% INHAL SOLN 4 ML **DISPENSED BY RESP. INH SCH (07:08)
--- NOTE | 2020-10-19 07:43 | Pulmonology Progress Note ---
Date of Service October 19, 2020 Assessment & Plan (1) Cavitary lung disease: (2) COPD (chronic obstructive pulmonary disease): (3) COVID-19: (4) Pneumonia: Laterality: right Lung location: upper lobe of lung Pneumonia type: due to unspecified organism Qualified Code(s): J18.9 - Pneumonia, unspecified organism (5) Mycetoma: Plan: CT chest 10/15/2020 personally reviewed: Right upper lobe 11 x 7 cm thick cavitary lesion with surrounding groundglass infiltrate Tree-in-bud opacities appreciated in the left upper left lower as well as the right middle lobe Reactive mediastinal lymphadenopathy especially 10R, 4R ''Patient was in the hospital back in 2002. He had a CT chest done at that abel e. Images are not in our system. He had a right upper lobe mass at that time for which he had a bronchoscopy done with BAL and transbronchial biopsy BAL as well as transbronchial biopsies were negative for malignancy'' --Right upper lobe cavitary lesion Thick cavitary wall Differential includes infectious which includes TB, patient likely has mycetoma within it as well Malignancy can also present the same way differential including squamous cell No eosinophilia appreciated on the CBC Continue with broad-spectrum antibiotics covering anaerobes as well as Pseudomonas Continue with atypical coverage Follow urine Legionella as well as mycoplasma IgM Gold QuantiFERON negative AFB culture and smear negative x1 Follow-up galactomannan --COVID-19 pneumonia Infiltrates on the CAT scan do not correlate with COVID-19 No need to treat COVID-19 as the patient is not hypoxic If the patient does get hypoxic then treatment with remdesivir could be thought of --COPD with emphysema On Advair at home Would recommend the patient to be on Anoro. Plan: Gold QuantiFERON negative Patient had lesion in the right upper lobe for a while, Possibility of cancer is still high Given the recent positive COVID-19. Plan would be to have bronchoscopy done as an outpatient after 21 days. Patient was told in and that detail that is very high possibility could be cancer and he needs to follow-up. Follow-up galactomannan. Recommend antibiotics to be given for total of 14 days. Complete 5 days of doxycycline as well. Case was discussed with Dr. Goodwin and RN Change Advair to Anoro on discharge. No further recommendation from pulmonary perspective. Please note the above document was generated using voice recognition software. It may contain grammatical, syntax or spelling errors.Any formal questions or concerns about the content, text or information contained within the body of this dictation should be directly addressed to the provider for clarification. Admission and Anticipated Discharge Date Admission Date: October 15, 2020 Subjective Case was discussed with RN. Patient has been doing fairly well when it comes to his breathing. He is now complaining of any chest pain. Saturating 96-98% on room air Has been afebrile Review of Systems Review of Systems: Other Physical Exam Physical Exam: Patient not examined due to coronavirus restrictions and attempts to minimize exposure to staff and consider PPE. Please refer to the hospitalist exam for complete details. Skin: no rashes, warm and dry Lymphatic: no cervical or axillary lymphadenopathy Results & Data Results & Data ([facility]) Vital Signs (Past 12 Hours) Vital Signs Temp Pulse Resp BP Pulse Ox 10/19/20 07:10 93 H 18 96 10/19/20 05:09 37.0 C 80 20 97/65 L 92 10/19/20 00:15 37.1 C 80 20 121/82 98 10/18/20 22:58 85 18 98 10/18/20 20:04 36.7 C 93 H 18 96/69 L 98 10/18/20 08:20 10/18/20 08:20 PG Care Time/CCT Total # of Minutes Spent Total Time Spent with Patient: Total time spent is greater than 50% in coordination of care (as documented) at patient's floor/unit and/or counseling patient: Coding Level of Care Code 12329 Subseq Hosp Care Lvl 2 Diagnoses Cavitary lung disease J98.4 COPD (chronic obstructive pulmonary disease) J44.9 COVID-19 U07.1 Pneumonia J18.9 Laterality: right Lung location: upper lobe of lung Pneumonia type: due to unspecified organism 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
[2020-10-19 07:56] LABS: Hematocrit (blood only) 33.2 % (42-52); Mean Corpuscular Hemoglobin 31.8 pg (25-34); Mean Corpuscular Hgb Conc 33.1 g/dL (32-36); Platelet Count 552 K/uL (130-400); RDW Coefficient of Variation 14.4 % (11.5-14.5); RDW Standard Deviation 51.1 fL (36.4-46.3); Red Blood Count 3.46 M/uL (4.7-6.1); White Blood Count 15.12 K/uL (4.8-10.8)
[2020-10-19 08:24] LABS: BUN Creatinine Ratio 12.3 (10-20); Calcium 8.5 mg/dl (8.5-10.1); Creatinine Clr Calc Pharmacy 138.8 ml/min; Est GFR (African American) 130.6 ml/min; Est GFR (Non-African American) 112.6 ml/min; Magnesium 1.7 mg/dl (1.8-2.4); Potassium 3.5 mmol/L (3.5-5.1)
[2020-10-19] MEDS: PANTOprazole 40 MG in SYRINGE 0 ML IV SCH (08:32)
[2020-10-19] MEDS: guaiFENesin 600 MG TABCR PO SCH (08:33)
[2020-10-19] MEDS: THIAMINE HCL 100 MG TAB PO SCH (08:33)
[2020-10-19] MEDS: FOLIC ACID 1 MG TAB PO SCH (08:34)
[2020-10-19] MEDS: UMECLIDINIUM/VILANTEROL 62.5/25MCG 7 PUFFS/INHALER INH SCH (08:34)
[2020-10-19] MEDS ORDERED: MAGNESIUM CHLORIDE 64MG DELAYED REL TAB PO SCH (09:00)
[2020-10-19] MEDS: DOXYCYCLINE HYCLATE 100 MG CAP PO SCH (09:52)
[2020-10-19] MEDS ORDERED: GABAPENTIN 600 MG TAB PO SCH (10:00)
[2020-10-19] MEDS: FERROUS SULFATE 325 MG/7.4 ML UDP PO SCH (12:01)
--- NOTE | 2020-10-19 12:42 | Hospitalist Progress Note ---
Date of Service October 19, 2020 Assessment & Plan (1) Sepsis: Plan: Sepsis COVID 19 Pneumonia Lung Mass DD: T.B., Malignancy H/O COPD -CTA:. No PE. 10.4 x 6.4 x 8 cm thick-walled cavitary lesion within the right upper lobe which contains an air-fluid level. Adjacent airspace opacity. The CT appearance is nonspecific however an infectious process is favored and tuberculosis with possible endobronchial spread throughout the lungs is within the differential. In addition, a neoplastic process is also within the differential and therefore short-term imaging follow-up is recommended to ensure resolution. Mildly enlarged right hilar lymph nodes and prominent mediastinal lymph nodes. These may be reactive. A neoplastic process could appear similar and therefore these should be assessed on subsequent CT to ensure resolution. Small irregular airspace opacities throughout the lungs which favor an infectious process. 3.4 cm cystic focus with airspace opacity within the left lower lobe. This should be assessed on follow-up CT as well. - Lung Mass has grown in Size from prior CT in 2002 -Saturating well on room air -Quantiferon gold for TB Negative Continue Zosyn Day #4>> transition to p.o. antibiotics to complete 14-day course Blood cultures no growth to date Sputum Cx for AFB pending Speech therapy evaluation completed Continue aspiration precautions No plan for bronchoscopy given Covid pneumonia currently , will need it eventually after 3 weeks Normal Procalcitonin Advised to follow up with Pulmnology upon discharge Normocytic Anemia Likely Multifactorial Iron deficiency Suspected Melena H/O GERD Monitor CBC Transfuse PRBCs as needed Continue PPI No plan for endoscopy secondary to pneumonia as per GI Appreciate GI input Continue Iron supplements Hyponatremia Multifactorial: poor p.o. intake, alcohol intake Alcohol abuse Past tobacco abuse Continue gabapentin protocol Continue thiamine, folic acid Monitor for alcohol withdrawal Counseled to quit drinking Sodium levels normalized Monitor Sodium :130>132>138 Hypomagnesemia Replace electrolytes as needed DVT Px: SCDs for now Code Status Full code Admission and Anticipated Discharge Date Admission Date: October 15, 2020 Subjective Patient is seen and examined at bedside No new complaints Reports Minimal cough Denies chest pain, dyspnea, dizziness, nausea, abdominal pain Discussed with Pulmnology today Review of Systems Review of Systems: All systems reviewed & are unremarkable except as noted in Subjective Physical Exam Physical Exam: Physical Exam: Vitals signs as noted above General Appearance:Moderately built and nourished, no apparent distress Head: normocephalic, Atraumatic Eyes: normal inspection, EOMI Neck: supple, Trachea midline Respiratory/Chest: Decreased breath sounds, CTA Cardiovascular: S1, S2, No murmur Abdomen/GI:Soft, Non tender, Bowel sounds present Extremities/Musculoskeletal:normal inspection, no edema Neurologic/Psych:AAOX3, grossly no focal neurological deficits Skin: normal color, warm Results & Data Results & Data ([facility]) Vital Signs (Past 12 Hours) Vital Signs Temp Pulse Resp BP Pulse Ox 10/19/20 12:02 36.8 C 89 18 114/72 98 10/19/20 08:30 36.6 C 88 18 114/72 97 10/19/20 07:10 93 H 18 96 10/19/20 05:09 37.0 C 80 20 97/65 L 92 Laboratory Results Short CBC 10/19/20 Range/Units 07:18 WBC 15.12 H (4.8-10.8) K/uL Hgb 11.0 L (14.0-18.0) g/dL Hct 33.2 L (42-52) % Plt Count 552 H (130-400) K/uL BMP 10/19/20 07:18 Sodium 138 Potassium 3.5 Chloride 107 Carbon Dioxide 25 BUN 8 Creatinine 0.65 Glucose 89 Calcium 8.5
--- NOTE | 2020-10-19 14:20 | Discharge Summary ---
Date of Service October 19, 2020 Admission HPI Per Admitting Provider History obtained from patient and records. Medical history significant for COPD, chronic right upper lobe mass/infiltrate, HTN, GERD, past tobacco abuse, alcohol abuse Patient noted to have a right upper lobe mass versus infiltrate on CT (since 2002 with history of hemoptysis. Work-up negative for tuberculosis as per documentation. Cytology did not show any malignancy. Patient unable to comply with periodic CXRs/ CAT scans/follow-up visit recommended by local marketing lead. Patient seen at PCP's office last month for elevated BP and swallowing problems for about 15 years. Patient has to eat slowly for food to go down, severe GERD especially when patient lays down as per records. OTC PPI intake which seem to help. Stools intermittently dark without abdominal pain as per patient. Daily PPI intake recommended by PCP. Patient advised to cut down on alcohol as per documentation. 3 weeks history of junky cough symptoms with wheezing, poor appetite, worsening shortness of breath without chest pain. No COVID-19 vaccination. No known recent COVID-19 contacts. Some weight loss as per patient. Patient denies fever, chills. Patient seen at PCP's office today. Prednisone, azithromycin and Augmentin prescribed for possible COPD exacerbation. Outpatient chest x-ray showed 1. Large cavitary lesion in the right upper lobe with air fluid level and surrounding opacity. This is suspicious for malignancy or possible infectious etiology. CT of chest recommended with IV contrast. Patient directed to ER for evaluation by PCP. IV Zosyn given at the ER for sepsis. Decadron given for Covid 19 pneumonia. 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 Admission Exam Per Admitting Provider Physical Exam Physical Exam: GENERAL: Comfortable, no respiratory distress SKIN: Pallor, warm HEENT: Pale palpebral conjunctivae, no ptosis, dry buccal mucosa NECK : Supple, no tenderness CHEST : Decreased breath sounds, occasional expiratory wheezes, no tenderness HEART : Tachycardic, no obvious murmurs ABDOMEN: Some distention, nontender RECTAL : Refused EXTREMITIES : No LE swelling/tenderness, no other conspicuous deformities noted NEUROLOGIC : Coherent, no facial asymmetry, no other gross focality Principal Diagnosis Sepsis COVID 19 Pneumonia Cavitary lung disease Hyponatremia Hypomagnesemia Discharge Data Allergies Allergy/AdvReac Type Severity Reaction Status Date / Time No Known Allergies Allergy Unverified 10/15/20 17:07 Consultations 10/15/20 19:11 ED Decision to Admit Stat 10/15/20 21:53 Consult Pulmonology Routine 10/16/20 05:38 Consult Gastroenterology Routine Ordered Studies 10/15/20 17:05 CT angio chest PE protocol Stat Hospital Course (1) Sepsis: Sepsis COVID 19 Pneumonia Lung Mass DD: T.B., Malignancy H/O COPD -CTA:. No PE. 10.4 x 6.4 x 8 cm thick-walled cavitary lesion within the right upper lobe which contains an air-fluid level. Adjacent airspace opacity. The CT appearance is nonspecific however an infectious process is favored and tuberculosis with possible endobronchial spread throughout the lungs is within the differential. In addition, a neoplastic process is also within the differential and therefore short-term imaging follow-up is recommended to ensure resolution. Mildly enlarged right hilar lymph nodes and prominent mediastinal lymph nodes. These may be reactive. A neoplastic process could appear similar and therefore these should be assessed on subsequent CT to ensure resolution. Small irregular airspace opacities throughout the lungs which favor an infectious process. 3.4 cm cystic focus with airspace opacity within the left lower lobe. This should be assessed on follow-up CT as well. - Lung Mass has grown in Size from prior CT in 2002 -Saturating well on room air -Quantiferon gold for TB Negative Continue Zosyn Day #4>> transition to p.o. antibiotics to complete 14-day course Blood cultures no growth to date Sputum Cx for AFB pending Speech therapy evaluation completed Continue aspiration precautions No plan for bronchoscopy given Covid pneumonia currently , will need it eventually after 3 weeks Normal Procalcitonin Advised to follow up with Pulmnology upon discharge Normocytic Anemia Likely Multifactorial Iron deficiency Suspected Melena H/O GERD Monitor CBC Transfuse PRBCs as needed Continue PPI No plan for endoscopy secondary to pneumonia as per GI Appreciate GI input Continue Iron supplements Hyponatremia Multifactorial: poor p.o. intake, alcohol intake Alcohol abuse Past tobacco abuse Continue gabapentin protocol Continue thiamine, folic acid Monitor for alcohol withdrawal Counseled to quit drinking Sodium levels normalized Monitor Sodium :130>132>138 Hypomagnesemia Replace electrolytes as needed DVT Px: SCDs for now Code Status Full code Total Time Total Time Spent Total Time Spent (In Minutes): 46 minutes Discharge Plan Discharge Items Patient Disposition: Home - Self-Care Reason For Visit: COUGH/DOCTOR REF FOR CT Discharge Diagnosis: Sepsis COVID 19 Pneumonia Cavitary lung disease Hyponatremia Hypomagnesemia Condition on Discharge: Fair Activity: Per Instructions section Exercise/Sports: Wait until after follow-up appointment Non-emergency contact: Primary Care Provider and Bulk Sealer Call non-emergency contact if: you have any medication questions, your symptoms worsen, your pain is concerning for you and you have a fever Follow-up/Referrals: Renard Mascorro MD [Hospitalist] - 10/26/20 11:20 am Diet: Regular Addtl Attending Provider Instructions: Follow-up with your primary care physician Dr. Mascorro on Oct 26, 2020 at 11:20 AM Follow up with your Bulk Sealer in 3 weeks for Bronchoscopy as outpatient Complete the Antibiotic course as prescribed: Amoxicillin/Clavulanate (Augmen tin) for 10 more days Doxycycline for 2 more days Your Inhaler is changed from Advair to Anora as recommended by your Pulmonolo gist Get bronchoscopy after 3 weeks for further evaluation of right upper lobe lung lesion as recommended by your marketing lead. Your Blood Couture, Sputum Culture and serological test for Aspergillus is pending at the time of discharge. Follow-up with your physician for results. Seek immediate medical attention if your symptoms reoccur or worsen Please take all medications as instructed on discharge list below. Please call if you have any questions or problems. You can reach a [facility] hospitalist on duty at [facility] 24 hours a day by calling [phone] Home Isolation COVID-19 Instructions The following information about Home Isolation is from the CDC Website: https://www.cdc.gov/coronavirus/2019-ncov/hcp/cygmrjqy-nubwoat-iajfce.html Stay home except to get medical care People who are mildly ill with COVID-19 are able to isolate at home during their illness. You should restrict activities outside your home, except for getting medical care. Do not go to work, school, or public areas. Avoid using public transportation, ride-sharing, or taxis. Separate yourself from other people and animals in your home People: As much as possible, you should stay in a specific room and away from other people in your home. Also, you should use a separate bathroom, if available. Animals: You should restrict contact with pets and other animals while you are sick with COVID-19, just like you would around other people. Although there have not been reports of pets or other animals becoming sick with COVID-19, it is still recommended that people sick with COVID-19 limit contact with animals until more information is known about the virus. When possible, have another member of your household care for your animals while you are sick. If you are sick with COVID-19, avoid contact with your pet, including petting, snuggling, being kissed or licked, and sharing food. If you must care for your pet or be around animals while you are sick, wash your hands before and after you interact with pets and wear a face mask. Call ahead before visiting your doctor If you have a medical appointment, call the healthcare provider and tell them that you have or may have COVID-19. This will help the healthcare providers office take steps to keep other people from getting infected or exposed. Wear a face mask You should wear a face mask when you are around other people (e.g., sharing a room or vehicle) or pets and before you enter a healthcare providers office. If you are not able to wear a face mask (for example, because it causes trouble breathing), then people who live with you should not stay in the same room with you, or they should wear a face mask if they enter your room. Cover your coughs and sneezes Cover your mouth and nose with a tissue when you cough or sneeze. Throw used tissues in a lined trash can. Immediately wash your hands with soap and water for at least 20 seconds or, if soap and water are not available, clean your hands with an alcohol-based hand enrollment management vice president that contains at least 60% alcohol. Clean your hands often Wash your hands often with soap and water for at least 20 seconds, especially after blowing your nose, coughing, or sneezing; going to the bathroom; and before eating or preparing food. If soap and water are not readily available, use an alcohol-based hand enrollment management vice president with at least 60% alcohol, covering all surfaces of your hands and rubbing them together until they feel dry. Soap and water are the best option if hands are visibly dirty. Avoid touching your eyes, nose, and mouth with unwashed hands. Avoid sharing personal household items You should not share dishes, drinking glasses, cups, eating utensils, towels, or bedding with other people or pets in your home. After using these items, they should be washed thoroughly with soap and water. Clean all high-touch surfaces everyday High touch surfaces include counters, tabletops, doorknobs, bathroom fixtures, toilets, phones, keyboards, tablets, and bedside tables. Also, clean any surfaces that may have blood, stool, or body fluids on them. Use a household cleaning spray or wipe, according to the label instructions. Labels contain instructions for safe and effective use of the cleaning product including precautions you should take when applying the product, such as wearing gloves and making sure you have good ventilation during use of the product. Monitor your symptoms Seek prompt medical attention if your illness is worsening (e.g., difficulty breathing).Beforeseeking care, call your healthcare provider and tell them that you have, or are being evaluated for, COVID-19. Put on a face mask before you enter the facility. These steps will help the healthcare providers office to keep other people in the office or waiting room from getting infected or exposed. Ask your healthcare provider to call the local or state health department. Persons who are placed under active monitoring or facilitated self- monitoring should follow instructions provided by their local health department or occupational health professionals, as appropriate. When working with your local health department check their available hours. If you have a medical emergency and need to call 911, notify the dispatch personnel that you have, or are being evaluated for COVID-19. If possible, put on a face mask before emergency medical services arrive. Discontinuing home isolation Patients with confirmed COVID-19 should remain under home isolation precautions until the risk of secondary transmission to others is thought to be low. The decision to discontinue home isolation precautions should be made on a [id number] basis, in consultation with healthcare providers and state and local health departments. Coronavirus disease 2019 (COVID-19) is a virus that causes a respiratory illness. It is caused by a coronavirus called 2019 novel coronavirus (2019- nCoV). There are many types of coronavirus. Coronaviruses are a very common cause of bronchitis. They may sometimes cause lung infection(pneumonia). Symptoms can range from mild to severe respiratory illness. These viruses are also foundin some animals. COVID-19 was first found in people in [facility], in late 2019. In 2020, several cases of COVID-19 have been confirmed in the [place] Public health officials are working to find the source. How the virus spreads is not yet fully known. It may be spread through droplets of fluid that a person coughs or sneezes into the air. It may be spread if you touch a surface with virus on it, such as a handle or object, a nd then touch your mouth. What are the symptoms of COVID-19? Some people have no symptoms or mild symptoms. Symptoms may appear 2 to 14 days after contact with the virus. Symptoms can include: Fever Coughing Trouble breathing What are possible complications from COVID-19? In many cases, this virus can cause infection (pneumonia) in both lungs. In some cases, this can cause . How is COVID-19 diagnosed? Your healthcare provider will ask about your symptoms. He or she will also ask about your recent travel and contact with sick people. Testing for the virus is only done through the CDC. If yourhealthcare provider thinks you may have COVID- 19, he or she will work with your local health department and the CDC on testing. Follow all instructions from your healthcare provider. COVID-19 is diagnosed by: Nasal and throat swab. A cotton-tipped swab is wiped inside your nose or throat. This is done to check for viruses in your nasal mucus. Sputum culture. A small sample of mucus coughed from your lungs (sputum) is collected if you have a cough. It is checked for the virus. How is COVID-19 treated? There is currently no medicine to treat the virus. Treatment is done to help your body while it fights the virus. This is known as supportive care. Supportive care may include: Pain medicine. These include acetaminophen and ibuprofen. They are used to help ease pain and reduce fever. Bed rest. This helps your body fight the illness. For severe illness, you may need to stay in the hospital. Care during severe illness may include: IV (intravenous) fluids.These are given through a vein to help keep your body hydrated. Oxygen. Supplemental oxygen or ventilation with a breathing machine (ventilator) may be given. This is done to keep enough oxygen in your body. Are you at risk for COVID-19? If youve been to a place where people have been sick with this virus, you are at risk for infection. You are at risk if you: Recently traveled to an affected area Had contact with a sick person who recently traveled to this area Had contact with a person who was diagnosed with COVID-19 How can COVID-19 be prevented? There is no vaccine yet. The best prevention is to not have contact with the virus. The CDC advises that people should not travel to areas where there are COVID-19 outbreaks right now for any reason that is not urgent. To help prevent spreading the infection, wash your hands often, or use an alcohol-basedhand enrollment management vice president. If you are in an area with COVID-19: Wash your hands often. Or use an alcohol-based hand enrollment management vice president often. Only touch your eyes, nose, or mouth with clean hands. Dont have contact with people who are sick. Follow local instructions about being in public. For example, you may be told to not use public transport for a period of time. Stay away from markets that have live or animals. Wash your hands after touching any animals. Don't touch animals that may be sick. Dont share eating or drinking tools with sick people. Dont kiss someone who is sick. Clean surfaces often with disinfectant. If you were in an area with COVID-19 in the last 14 days: Call your healthcare provider. He or she can talk with local health staff to see what action may be needed. Follow all instructions from your provider. Take your temperature every morning and evening for at least 14 days. This is to check for fever. Keep a record of the readings. Keep watch for symptoms of the virus. Tell your provider right away if you have symptoms. If you were in an area with COVID-19 and have a fever or other symptoms: Dont panic. Keep in mind that other illnesses can cause similar symptoms. Stay away from work, school, and public places. Limit physical contact with family members. Don't kiss anyone or share eating or drinking utensils. Clean surfaces you touch with disinfectant. This is to help prevent the virus from spreading. Call your healthcare provider. Explain that you have been exposed to COVID-19 and have symptoms. Do this before going to any hospital. Wait for instructions. Keep in mind that healthcare staff may wear protective equipment such as masks, gowns, gloves, and eye protection. You may be put in a separate room. This is to prevent the possible virus from spreading. Tell the healthcare staff about recent travel. This includes local travel on public transport. Staff may need to find other people you have been in contact with. Follow all instructions the healthcare staff give you. If you have been diagnosed with COVID-19 Follow all instructions from your healthcare provider. Dont leave your home, except to get medical care. Call your healthcare providers office before going. They can prepare and give you instructions. This will help prevent the virus from spreading. Dont go to work, school, or public areas. Dont use public transport or taxis. Stay away from other people in your home. Have them wear face masks around you. Dont share household items or food. Wear a face mask if you can. This includes at home or in a medical facility. Cover your face with a tissue when you cough or sneeze. Throw the tissue away. Wash your hands. Wash your hands often. Caregivers should: Follow all instructions from healthcare staff. Wear a face mask and protective clothing as advised. Wash hands often. Keep track of the sick persons symptoms. Clean surfaces, fabrics, and laundry thoroughly. Keep other people away from the sick person. When to call your healthcare provider Call your healthcare provider: If youve recently traveled and have symptoms If you have been diagnosed with COVID-19 and your symptoms are worse To learn more To find out more about COVID-19, visit the CDC website at www.cdc.gov/coronavirus/2019-ncov/index.html. [employer]. [address] [place] [address]. All rights reserved. This information is not intended as a substitute for professional medical care. Always follow your healthcare professional's instructions. This information has been adapted from [employer] Pending Studies at Discharge: Yes Studies:: Serology for Aspergillus, sputum and blood culture Stand-Alone Forms: My [facility], Smoking Cessation Medications and DC Order Prescriptions: New doxycycline hyclate 100 mg Capsule 100 mg PO BID@1000,2200 2 Days Qty: 4 RF: 0 thiamine HCl (vitamin B1) [Vitamin B-1] 100 mg Tablet 100 mg PO QAM Qty: 30 RF: 0 folic acid 1 mg Tablet 1 mg PO QAM Qty: 30 RF: 0 magnesium chloride [Mag 64] 64 mg Tablet,Delayed Release (Dr/Ec) 64 mg PO BID Qty: 30 RF: 0 ferrous sulfate 325 mg (65 mg iron) tablet 325 mg PO DAILY Qty: 30 RF: 1 Anoro Ellipta 62.5-25 mcg/actuation blister with device 1 inh inhalation DAILY Qty: 60 RF: 1 Continued albuterol sulfate 2.5 mg /3 mL (0.083 %) Solution For Nebulization 0 mg INHALATION ONCE RF: 0 albuterol sulfate [ProAir HFA] 90 mcg/actuation Hfa Aerosol Inhaler 2 puff INHALATION QID RF: 0 elderberry fruit 200 mg Capsule 200 mg PO ONCE RF: 0 amoxicillin-pot clavulanate [Augmentin] 875-125 mg Tablet 1 tab PO Q12H 10 Days Qty: 20 RF: 0 Discontinued fluticasone propion-salmeterol [Advair Diskus] 250-50 mcg/dose Blister With Device 1 inh INHALATION BID RF: 0 prednisone [Deltasone] 10 mg Tablet 10 mg PO DIRECTED RF: 0 azithromycin [Zithromax Z-Ludwig] 250 mg Tablet 250 mg PO DIRECTED RF: 0 Discharge Orders: Discharge Order (Routine); Ordered 10/19/20 Ordered By: Ovidio Goodwin Admission Data Admit Date/Time: 10/15/20 20:55 Attending Provider: Ovidio Goodwin Admit Provider: Jose Guadalupe Gray Primary Care Provider: PCP,NO Other Providers: Jose Guadalupe Gray ; Lorenzo Damon ; Yinka Xiong ; Corona Giraldo ; Jeet Pineda ; Stanislav Macario ; Heidy Temple ; Lenore Moya ; Osmar Ramirez ; Amie Davis ; Patrice Mcgrath ; Butch Brower ; Gail De ; Zbigniew Small ; Carina Conrad ; Paulina Gordillo ; Kalli Torres ; Lori Dorado ; Dickson Couch Other Interventions: Discharge Summary Assessment (RN) Last Done: 10/19/20 14:58
[2020-10-21 15:22] LABS: Aspergillus Antigen, Serum Not Detected (Not Detected)
== END 2020-10-19 16:15 | disposition home or self-care (01) | DRG 177 ==
LOC: ED 14:32 → 2N 20:55 → 2S 10-16 21:06